=== PATIENT | male | born 1965 | race Caucasian/White ===

== ENCOUNTER 2022-01-01 18:09 | Observation (INO) ==
[2022-01-01 18:32] LABS: Basophils # (auto) 0.03 K/uL (0-0.2); Basophils % (auto) 0.4 %; Eosinophils # (auto) 0.05 K/uL (0-0.5); Eosinophils % (auto) 0.7 %; Hematocrit (blood only) 49.3 % (42-52); Hemoglobin 17.2 g/dL (14.0-18.0); Immature Granulocytes # (auto) 0.01 K/uL (0.00-0.02); Immature Granulocytes % (auto) 0.1 %; Lymphocytes # (auto) 2.31 K/uL (1.2-3.4); Lymphocytes % (auto) 30.4 %; Mean Corpuscular Hemoglobin 33.2 pg (25-34); Mean Corpuscular Hgb Conc 34.9 g/dL (32-36); Mean Corpuscular Volume 95.2 fL (80-100); Mean Platelet Volume 10.5 fL (7.4-10.4); Monocytes # (auto) 0.27 K/uL (0.11-0.59); Monocytes % (auto) 3.5 %; Neutrophils # (auto) 4.94 K/uL (1.4-6.5); Neutrophils % (auto) 64.9 %; Platelet Count 267 K/uL (130-400); RDW Coefficient of Variation 13.3 % (11.5-14.5); RDW Standard Deviation 46.2 fL (36.4-46.3); Red Blood Count 5.18 M/uL (4.7-6.1); White Blood Count 7.61 K/uL (4.8-10.8)
[2022-01-01 18:59] LABS: Troponin I < 0.03 ng/ml (0-0.04)
[2022-01-01 19:04] LABS: Anion Gap 10 (3-11); Blood Urea Nitrogen 22 mg/dl (6-23); Calcium 9.3 mg/dl (8.5-10.1); Carbon Dioxide 24 mmol/L (21-32); Chloride 103 mmol/L (98-107); Creatinine Clr Calc Pharmacy 97.8 ml/min; Est GFR (African American) 86.5 ml/min; Est GFR (Non-African American) 74.6 ml/min; Glucose 128 mg/dl (70-99(Fasting)); Lipase 9 U/L (11-82); Potassium 4.2 mmol/L (3.5-5.1); Sodium 137 mmol/L (136-145)
--- NOTE | 2022-01-01 19:23 | XRay Report ---
XR chest 1V portable HISTORY: Atypical Chest Pain COMPARISON: Chest 12/26/2011. FINDINGS: No pneumothorax. No pleural effusions. No focal lung consolidations to suggest pneumonia. N o evidence for pulmonary edema. The heart remains mildly enlarged. IMPRESSION: Stable mild cardiomegaly. Otherwise, no acute process within the chest. ACT 112: Negative or not required by law. Electronically signed by: Colin Retana M.D. 01/01/2022 7:22 PM
--- NOTE | 2022-01-01 20:12 | History & Physical Report ---
Date of Service January 01, 2022 Assessment & Plan (1) Chest pain: (2) HTN (hypertension): (3) Tobacco use disorder: (4) Alcohol use disorder: Plan: This is a 56yo M with a PMH of HTN, tobacco use disorder and alcohol use who presents from [facility] after developing chest pain following a resting echocardiogram today. PCP: Seven Patient seen and examined with Dr. Nino. Please see addendum for plan details. History of Present Illness Chief Complaint: chest pain Primary Care Provider: Wandy Amezcua, DO This is a 56yo M with a PMH of HTN and tobacco use disorder who presents from [facility] after developing chest pain following a resting echocardiogram today. Patient recently established with [facility] PCP last month after not receiving medical care for years. There was concern for elevated blood pressure, so patient was started on 25 mg losartan and then recently directed to increase to 50 mg but patient has not yet started that dose. Went to [facility] today for resting echocardiogram due to elevated blood pressure and was driving home when he developed sudden onset, substernal, central chest pressure, rating pain a 10/10. Pain was nonradiating. Was associated with diaphoresis, nausea and shortness of breath. No vomiting. Drove himself to back [facility], where he was brought by EMS to the hospital for further evaluation. Received aspirin and sublingual nitro with complete resolution of chest pain. Would estimate his chest pain lasted for approximately 15-20 minutes. Denies any episodes of chest pain in the past. No significant family history of heart disease. Continues to smoke 1/2 pack/day of cigarettes. Endorses drinking 4-8 beers nightly with last drink last evening. TTE report from earlier today with preserved EF: 55-59%, grade 1 diastolic dysfunction. Currently resting comfortably. No fever, chills, headache, lightheadedness, CP, palpitations, SOB, N/V, abdominal pain, dysuria, diarrhea or constipation. Allergies Allergy/AdvReac Type Severity Reaction Status Date / Time No Known Allergies Allergy Unverified 01/01/22 19:17 Home Medications Medication Instructions Recorded Confirmed Type albuterol sulfate 90 mcg/actuation 2 puff INHALATION Q4H PRN 01/01/22 01/01/22 History aerosol inhaler losartan 25 mg tablet 25 mg PO QAM 01/01/22 01/01/22 History Past Med/Surg History Medical History Alcohol use disorder HTN (hypertension) Tobacco use disorder Surgical History S/P hernia repair Family History Other Cancer Diabetes Social History Smoking Status: Current every day smoker Tobacco Type: Cigarettes packs per day: 0.5; Years Smoked: 20; Hx Alcohol Use: Yes Alcohol type: beer Alcohol type Comment: 4-8 beers nightly, last drink 12/31/21 Hx Substance Use: No Preferred Language: [place] Communication Ability: Effective Negotiator Required: No Beliefs That Will Affect Care: None Current Living Situation: Alone Feels Safe at Home: Yes Safety Concerns: Feels Safe At This Time Assistive Devices: Glasses Assistive Devices Comment: reading glasses Review of Systems Review of Systems: At least ten systems reviewed and negative except as noted in the HPI. Physical Exam Physical Exam: General Appearance: WD/WN, vitals as above, NAD, sitting up in bed, pleasant, conversing easily Head: normocephalic, atraumatic Eyes: normal inspection, PERRL, conjunctivae normal, anicteric sclerae ENT: external ear and nose normal, oropharynx normal Neck: normal visual inspection, trachea midline, no thyromegaly Respiratory: normal respiratory effort, lungs clear to auscultation, no wheeze, rales, rhonchi. No accessory muscle use Cardiovascular: regular rate, rhythm, no murmur, normal peripheral pulses, no BLE edema. Vessels: no JVD Chest: normal inspection of chest, no reproducible pain to palpation Abdomen/GI: normal bowel sounds, soft, nontender, no hepatosplenomegaly Extremities/Musculoskeletal: no cyanosis or clubbing, extremities motor strength 5/5 Neurologic: PERRL, EOMI, accommodation nl, no face palsy, no dysarthria, CN's II-XI intact bilaterally and moves all extremities Psychiatric: A+Ox3, euthymic affect Skin: no rashes, normal color, warm/dry Results & Data Results & Data ([facility]) Vital Signs (Past 12 Hours) Vital Signs Temp Pulse Pulse Resp BP BP Pulse Ox 01/01/22 19:45 81 18 129/76 96 01/01/22 19:40 85 17 97 01/01/22 19:30 142/85 H 80 L 01/01/22 19:20 82 L 01/01/22 19:15 83 127/76 01/01/22 19:10 89 01/01/22 19:00 86 132/73 01/01/22 18:50 87 01/01/22 18:45 83 138/73 01/01/22 18:40 82 01/01/22 18:32 36.7 C 87 87 18 135/81 97 01/01/22 18:13 36.7 C 87 14 161/98 H Laboratory Results Short CBC 01/01/22 Range/Units 18:15 WBC 7.61 (4.8-10.8) K/uL Hgb 17.2 (14.0-18.0) g/dL Hct 49.3 (42-52) % Plt Count 267 (130-400) K/uL BMP 01/01/22 18:15 Sodium 137 Potassium 4.2 Chloride 103 Carbon Dioxide 24 BUN 22 Creatinine 1.10 Glucose 128 H Calcium 9.3 Cardiac Enzymes 01/01/22 Range/Units 18:15 Troponin I < 0.03 (0-0.04) ng/ml Diagnostic Findings Chest X-Ray 01/01/22 18:22 XR chest 1V portable HISTORY: Atypical Chest Pain COMPARISON: Chest 12/26/2011. FINDINGS: No pneumothorax. No pleural effusions. No focal lung consolidations to suggest pneumonia. No evidence for pulmonary edema. The heart remains mildly enlarged. IMPRESSION: Stable mild cardiomegaly. Otherwise, no acute process within the chest. ACT 112: Negative or not required by law. Electronically signed by: Colin Retana M.D. 01/01/2022 7:22 PM ECG Additional Comments: Normal sinus rhythm, Incomplete right bundle branch block Supervising Physician Co-Signing Physician Notes IM ATTENDING : Patient seen and examined. History obtained from patient and records. Preceding documentation by Ms. Patricia Miles PA-C reviewed. In addition, patient irate about multiple providers "asking the same questions" about his medical history. Patient became defensive when queried regarding alcohol intake. FINAL ASSESSMENT AND PLAN as follows : Chest pain rule out ACS Patient with risk factors for ischemic heart disease Hypertension, slightly elevated Hyperglycemia rule out DM Possible alcohol abuse Ongoing tobacco abuse OBS PCU Aspirin for CAD prevention until ACS definitely ruled out Trend cardiac markers Cardiology consult in a.m. RE chest pain N.p.o. after midnight until patient seen by cardiology in anticipation of diagnostic procedure. Titrate home losartan PATRICE S, DT precautions Check lipid profile, hemoglobin A1c DVT prophylaxis. Lovenox subcu Full code Text document was generated using [employer] voice recognition software. It may contain grammatical or spelling errors. Kindly contact undersigned for clarification of any documentation item in question.
[2022-01-01 20:50] LABS: Partial Thromboplastin Ratio 0.9; Partial Thromboplastin Time 23.2 Seconds (21.0-31.0)
[2022-01-01] MEDS ORDERED: LOSARTAN POTASSIUM 25 MG TAB PO STA (20:52)
[2022-01-01] MEDS ORDERED: THIAMINE HCL 100 MG in SYRINGE 9 ML IV STA (20:54)
[2022-01-01 21:21] LABS: Troponin I < 0.03 ng/ml (0-0.04)
[2022-01-01] MEDS ORDERED: THIAMINE HCL 100 MG/ML 2 ML VIAL ONE (21:24)
[2022-01-01 21:33] LABS: Alanine Aminotransferase 24 U/L (7-52); Alkaline Phosphatase 50 U/L (34-104); Bilirubin,Total 0.9 mg/dl (0.2-1.0); Magnesium 1.9 mg/dl (1.7-2.4); Total Protein 6.5 gm/dl (6.0-8.3)
[2022-01-02] MEDS ORDERED: SODIUM CHLORIDE 0.9% 1000ML 1,000 ML IV SCH
[2022-01-02 00:21] LABS: Bilirubin Direct 0.1 mg/dl (0-0.2)
--- NOTE | 2022-01-02 00:30 | Emergency Department Note ---
History of Present Illness General Chief Complaint: Chest Pain Time Seen by Provider: 01/01/22 18:18 History of Present Illness Provider Complaint: chest pain Onset (ago): hour(s) 2 Duration: now resolved Onset: during rest Pain Location: substernal Pain Radiation: none Severity: moderate Maximum Pain Intensity: 5 Current Pain Intensity: 5 Quality: + heaviness Relieved By: + nitroglycerin Exacerbated By: + nothing Context: no recent illness, no recent surgery, no recent immobilization, no recent travel, no trauma/injury, no new medications or no history of DVT/PE Associated symptoms: + dyspnea; no nausea, no vomiting, no diaphoresis, no sense of impending doom, no syncope, no palpitations, no fever, no cough or no leg swelling Treatments prior to arrival: aspirin and nitroglycerin Pain began while getting a cardiac echo at [facility]. Home Medications Medication Instructions Recorded Confirmed Type albuterol sulfate 90 mcg/actuation 2 puff INHALATION Q4H PRN 01/01/22 01/01/22 History aerosol inhaler losartan 25 mg tablet 25 mg PO QAM 01/01/22 01/01/22 History Allergies Allergy/AdvReac Type Severity Reaction Status Date / Time No Known Allergies Allergy Unverified 01/01/22 19:17 Past Med/Surg History Medical History Alcohol use disorder HTN (hypertension) Tobacco use disorder Surgical History S/P hernia repair Family History Other Cancer Diabetes Social History Smoking Status: Current every day smoker Tobacco Type: Cigarettes packs per day: 0.5; Years Smoked: 20; Hx Alcohol Use: Yes Alcohol type: beer Alcohol type Comment: 4-8 beers nightly, last drink 12/31/21 Hx Substance Use: No Feels Safe at Home: Yes Review of Systems A total of 10 systems reviewed and were otherwise negative Physical Exam Vital Signs Vital Signs - 24 hr 01/01/22 18:13 01/01/22 18:32 01/01/22 18:40 Temperature 36.7 C 36.7 C Temperature Source Oral Oral Pulse Rate 87 87 82 Pulse Rate [Left Finger] 87 Pulse Rate from SpO2 Sensor Pulse Rhythm Regular Pulse Rhythm [Left Finger] Regular Pulse Strength [Left Finger] Normal Respiratory Rate 14 18 Respiratory Effort / Characteristics Respiratory Depth Normal Normal Respiratory Pattern Blood Pressure 161/98 H Blood Pressure [Left Arm] 135/81 Blood Pressure Mean 119 Blood Pressure Mean [Left Arm] 99 Blood Pressure Position Lying Pulse Oximetry 97 Oxygen Delivery Method Room Air Room Air Sepsis New/Unexplained Change in Mental Status No Sepsis Action Taken by Nursing No Action Required 01/01/22 18:45 01/01/22 18:50 01/01/22 19:00 Temperature Temperature Source Pulse Rate 83 87 86 Pulse Rate [Left Finger] Pulse Rate from SpO2 Sensor Pulse Rhythm Pulse Rhythm [Left Finger] Pulse Strength [Left Finger] Respiratory Rate Respiratory Effort / Characteristics Respiratory Depth Respiratory Pattern Blood Pressure 138/73 132/73 Blood Pressure [Left Arm] Blood Pressure Mean 94 92 Blood Pressure Mean [Left Arm] Blood Pressure Position Pulse Oximetry Oxygen Delivery Method Sepsis New/Unexplained Change in Mental Status Sepsis Action Taken by Nursing 01/01/22 19:10 01/01/22 19:15 01/01/22 19:20 Temperature Temperature Source Pulse Rate 89 83 Pulse Rate [Left Finger] Pulse Rate from SpO2 Sensor Pulse Rhythm Pulse Rhythm [Left Finger] Pulse Strength [Left Finger] Respiratory Rate Respiratory Effort / Characteristics Respiratory Depth Respiratory Pattern Blood Pressure 127/76 Blood Pressure [Left Arm] Blood Pressure Mean 93 Blood Pressure Mean [Left Arm] Blood Pressure Position Pulse Oximetry 82 L Oxygen Delivery Method Sepsis New/Unexplained Change in Mental Status Sepsis Action Taken by Nursing 01/01/22 19:30 01/01/22 19:40 01/01/22 19:45 Temperature Temperature Source Pulse Rate 85 81 Pulse Rate [Left Finger] Pulse Rate from SpO2 Sensor 86 82 Pulse Rhythm Pulse Rhythm [Left Finger] Pulse Strength [Left Finger] Respiratory Rate 17 18 Respiratory Effort / Characteristics Respiratory Depth Respiratory Pattern Blood Pressure 142/85 H 129/76 Blood Pressure [Left Arm] Blood Pressure Mean 104 93 Blood Pressure Mean [Left Arm] Blood Pressure Position Pulse Oximetry 80 L 97 96 Oxygen Delivery Method Sepsis New/Unexplained Change in Mental Status Sepsis Action Taken by Nursing 01/01/22 20:00 01/01/22 20:01 01/01/22 20:15 Temperature Temperature Source Pulse Rate 85 81 Pulse Rate [Left Finger] 82 Pulse Rate from SpO2 Sensor 86 81 Pulse Rhythm Pulse Rhythm [Left Finger] Regular Pulse Strength [Left Finger] Normal Respiratory Rate 18 12 20 Respiratory Effort / Characteristics Respiratory Depth Normal Respiratory Pattern Blood Pressure 141/91 H 139/82 Blood Pressure [Left Arm] 154/101 H Blood Pressure Mean 107 101 Blood Pressure Mean [Left Arm] 118 Blood Pressure Position Pulse Oximetry 98 97 96 Oxygen Delivery Method Room Air Sepsis New/Unexplained Change in Mental Status Sepsis Action Taken by Nursing 01/01/22 20:30 01/01/22 22:00 01/01/22 23:00 Temperature 36.8 C Temperature Source Oral Pulse Rate 85 77 Pulse Rate [Left Finger] 80 Pulse Rate from SpO2 Sensor 85 77 Pulse Rhythm Pulse Rhythm [Left Finger] Regular Pulse Strength [Left Finger] Normal Respiratory Rate 20 18 18 Respiratory Effort / Characteristics Non-Labored Respiratory Depth Normal Respiratory Pattern Regular Blood Pressure 154/101 H 156/91 H Blood Pressure [Left Arm] 140/82 Blood Pressure Mean 118 112 Blood Pressure Mean [Left Arm] 101 Blood Pressure Position Pulse Oximetry 96 97 96 Oxygen Delivery Method Room Air Room Air Sepsis New/Unexplained Change in Mental Status Sepsis Action Taken by Nursing 01/01/22 23:15 01/02/22 00:00 Temperature Temperature Source Pulse Rate 78 72 Pulse Rate [Left Finger] Pulse Rate from SpO2 Sensor 79 72 Pulse Rhythm Pulse Rhythm [Left Finger] Pulse Strength [Left Finger] Respiratory Rate 19 18 Respiratory Effort / Characteristics Respiratory Depth Respiratory Pattern Blood Pressure 134/84 106/60 Blood Pressure [Left Arm] Blood Pressure Mean 100 75 Blood Pressure Mean [Left Arm] Blood Pressure Position Pulse Oximetry 95 93 Oxygen Delivery Method Room Air Room Air Sepsis New/Unexplained Change in Mental Status Sepsis Action Taken by Nursing Physical Exam GENERAL: He is oriented to person, place, and time. He appears well-developed and well-nourished. He does not appear distressed. HENT: Exam performed. - Head: Normocephalic and atraumatic. - Right Ear: External ear normal. No mastoid tenderness. - Left Ear: External ear normal. No mastoid tenderness. - Mouth/Throat: The oropharynx is clear and moist. No trismus in the jaw. No dental abscesses or uvula swelling. No oropharyngeal exudate or tonsillar abscesses. EYES: Conjunctivae and EOM are normal. Pupils are equal, round, and reactive to light. Right eye exhibits no discharge. Left eye exhibits no discharge. No scleral icterus. NECK: Normal range of motion. Neck supple. No JVD present. No spinous process tenderness present. No carotid bruit present. No rigidity. No tracheal deviation and normal range of motion present. No Brudzinski's sign and no Kernig's sign noted. CV: Normal rate, regular rhythm, normal heart sounds and intact distal pulses. There is no peripheral edema. Palpable radial pulses bue. PULM/CHEST: Effort normal and breath sounds normal. No respiratory distress. No stridor. He has no wheezes. He has no rales. - Chest Wall: He exhibits no tenderness. ABD: The abdomen is soft. Bowel sounds are normal. He has no distension. No mass is present. There is no tenderness. There is no rebound, no guarding, no Hook's sign and no tenderness at McBurney's point. Rovsig negative. MUSC/SKEL: Normal range of motion. There is no peripheral edema, tenderness or deformity. LYMPH: No cervical adenopathy. NEURO: He is alert and oriented to person, place, and time. He has normal strength. No cranial nerve deficit or sensory deficit. Coordination and gait normal. GCS eye subscore is 4. GCS verbal subscore is 5. GCS motor subscore is 6. Cerebellar tests wnl. SKIN: Skin is warm and dry. He is not diaphoretic. PSYCH: He has a normal mood and affect. Behavior is normal. Judgment and thought content normal. Course Course 1817: The patient was evaluated in room C6. A complete history and physical exam was performed Cardiac monitoring: An order was placed for continuous cardiac monitoring. The monitor shows a rate of 70 with sinus rhythm 1954: Vital signs stable. Labs and imaging within normal limits. Patient currently not reporting any chest pain. [facility] and cardiology kennedy luation. Dr. Alex team notified. Administered Medications Sodium Chloride (Nss 1000ml) 1,000 mls @ 50 mls/hr IV .Q20H ALAN Stop: 02/01/22 00:00 Last Admin: 01/02/22 00:05 Dose: 50 mls/hr Documented by: [id number] Discontinued Medications Thiamine HCl 100 mg/ Syringe 10 mls @ 2 mls/min IV NOW STA Stop: 01/01/22 20:58 Last Admin: 01/01/22 21:27 Dose: 2 mls/min Documented by: [id number] Losartan Potassium (Losartan Potassium 25 Mg Tab) 25 mg PO NOW STA Stop: 01/01/22 20:53 Last Admin: 01/01/22 21:34 Dose: 25 mg Documented by: [id number] Thiamine HCl (Thiamine Hcl 100 Mg/Ml 2 Ml Vial) Confirm Administered Dose 200 mg .ROUTE .STK-MED ONE Stop: 01/01/22 21:25 Last Admin: 01/01/22 21:26 Dose: Not Given Documented by: [id number] Medical Decision Making Laboratory Data Result diagrams: 01/01/22 18:15 01/01/22 18:15 Labs: Lab Results 01/01/22 01/01/22 01/01/22 Range/Units 18:15 18:15 18:15 WBC 7.61 (4.8-10.8) K/uL RBC 5.18 (4.7-6.1) M/uL Hgb 17.2 (14.0-18.0) g/dL Hct 49.3 (42-52) % MCV 95.2 (80-100) fL MCH 33.2 (25-34) pg MCHC 34.9 (32-36) g/dL RDW Std Deviation 46.2 (36.4-46.3) fL RDW Coeff of Johnson 13.3 (11.5-14.5) % Plt Count 267 (130-400) K/uL MPV 10.5 H (7.4-10.4) fL Immature Gran % (Auto) 0.1 % Neut % (Auto) 64.9 % Lymph % (Auto) 30.4 % Runnels % (Auto) 3.5 % Eos % (Auto) 0.7 % Baso % (Auto) 0.4 % Neut # (Auto) 4.94 (1.4-6.5) K/uL Lymph # (Auto) 2.31 (1.2-3.4) K/uL Runnels # (Auto) 0.27 (0.11-0.59) K/uL Eos # (Auto) 0.05 (0-0.5) K/uL Baso # (Auto) 0.03 (0-0.2) K/uL Immature Gran # (Auto) 0.01 (0.00-0.02) K/uL APTT 23.2 (21.0-31.0) Seconds PTT Ratio 0.9 Sodium 137 (136-145) mmol/L Potassium 4.2 (3.5-5.1) mmol/L Chloride 103 (98-107) mmol/L Carbon Dioxide 24 (21-32) mmol/L Anion Gap 10 (3-11) BUN 22 (6-23) mg/dl Creatinine 1.10 (0.6-1.4) mg/dl Est Cr Clr Drug Dosing 97.8 ml/min Est GFR ( Amer) 86.5 ml/min Est GFR (Non-Af Amer) 74.6 ml/min BUN/Creatinine Ratio 20.0 (10-20) Glucose 128 H (70-99(Fasting)) mg/dl Calcium 9.3 (8.5-10.1) mg/dl Magnesium (1.7-2.4) mg/dl Total Bilirubin (0.2-1.0) mg/dl Direct Bilirubin (0-0.2) mg/dl AST (13-39) U/L ALT (7-52) U/L Alkaline Phosphatase (34-104) U/L Troponin I < 0.03 (0-0.04) ng/ml Total Protein (6.0-8.3) gm/dl Albumin (3.4-5.0) gm/dl Lipase 9 L (11-82) U/L SARS-CoV-2, RNA, NAAT (NEGATIVE) 01/01/22 01/01/22 01/01/22 Range/Units 18:27 20:45 22:30 WBC (4.8-10.8) K/uL RBC (4.7-6.1) M/uL Hgb (14.0-18.0) g/dL Hct (42-52) % MCV (80-100) fL MCH (25-34) pg MCHC (32-36) g/dL RDW Std Deviation (36.4-46.3) fL RDW Coeff of Johnson (11.5-14.5) % Plt Count (130-400) K/uL MPV (7.4-10.4) fL Immature Gran % (Auto) % Neut % (Auto) % Lymph % (Auto) % Runnels % (Auto) % Eos % (Auto) % Baso % (Auto) % Neut # (Auto) (1.4-6.5) K/uL Lymph # (Auto) (1.2-3.4) K/uL Runnels # (Auto) (0.11-0.59) K/uL Eos # (Auto) (0-0.5) K/uL Baso # (Auto) (0-0.2) K/uL Immature Gran # (Auto) (0.00-0.02) K/uL APTT (21.0-31.0) Seconds PTT Ratio Sodium (136-145) mmol/L Potassium (3.5-5.1) mmol/L Chloride (98-107) mmol/L Carbon Dioxide (21-32) mmol/L Anion Gap (3-11) BUN (6-23) mg/dl Creatinine (0.6-1.4) mg/dl Est Cr Clr Drug Dosing ml/min Est GFR ( Amer) ml/min Est GFR (Non-Af Amer) ml/min BUN/Creatinine Ratio (10-20) Glucose (70-99(Fasting)) mg/dl Calcium (8.5-10.1) mg/dl Magnesium 1.9 (1.7-2.4) mg/dl Total Bilirubin 0.9 (0.2-1.0) mg/dl Direct Bilirubin Cancelled (0-0.2) mg/dl AST Cancelled (13-39) U/L ALT 24 (7-52) U/L Alkaline Phosphatase 50 (34-104) U/L Troponin I < 0.03 (0-0.04) ng/ml Total Protein 6.5 (6.0-8.3) gm/dl Albumin 4.0 (3.4-5.0) gm/dl Lipase (11-82) U/L SARS-CoV-2, RNA, NAAT NEGATIVE (NEGATIVE) 01/01/22 Range/Units 23:26 WBC (4.8-10.8) K/uL RBC (4.7-6.1) M/uL Hgb (14.0-18.0) g/dL Hct (42-52) % MCV (80-100) fL MCH (25-34) pg MCHC (32-36) g/dL RDW Std Deviation (36.4-46.3) fL RDW Coeff of Johnson (11.5-14.5) % Plt Count (130-400) K/uL MPV (7.4-10.4) fL Immature Gran % (Auto) % Neut % (Auto) % Lymph % (Auto) % Runnels % (Auto) % Eos % (Auto) % Baso % (Auto) % Neut # (Auto) (1.4-6.5) K/uL Lymph # (Auto) (1.2-3.4) K/uL Runnels # (Auto) (0.11-0.59) K/uL Eos # (Auto) (0-0.5) K/uL Baso # (Auto) (0-0.2) K/uL Immature Gran # (Auto) (0.00-0.02) K/uL APTT (21.0-31.0) Seconds PTT Ratio Sodium (136-145) mmol/L Potassium (3.5-5.1) mmol/L Chloride (98-107) mmol/L Carbon Dioxide (21-32) mmol/L Anion Gap (3-11) BUN (6-23) mg/dl Creatinine (0.6-1.4) mg/dl Est Cr Clr Drug Dosing ml/min Est GFR ( Amer) ml/min Est GFR (Non-Af Amer) ml/min BUN/Creatinine Ratio (10-20) Glucose (70-99(Fasting)) mg/dl Calcium (8.5-10.1) mg/dl Magnesium (1.7-2.4) mg/dl Total Bilirubin (0.2-1.0) mg/dl Direct Bilirubin 0.1 (0-0.2) mg/dl AST 15 (13-39) U/L ALT (7-52) U/L Alkaline Phosphatase (34-104) U/L Troponin I (0-0.04) ng/ml Total Protein (6.0-8.3) gm/dl Albumin (3.4-5.0) gm/dl Lipase (11-82) U/L SARS-CoV-2, RNA, NAAT (NEGATIVE) Imaging Data Chest x-ray: Radiologist's impression: Chest X-Ray 01/01/22 18:22 XR chest 1V portable HISTORY: Atypical Chest Pain COMPARISON: Chest 12/26/2011. FINDINGS: No pneumothorax. No pleural effusions. No focal lung consolidations to suggest pneumonia. No evidence for pulmonary edema. The heart remains mildly enlarged. IMPRESSION: Stable mild cardiomegaly. Otherwise, no acute process within the chest. ACT 112: Negative or not required by law. Electronically signed by: Colin Retana M.D. 01/01/2022 7:22 PM ECG Data Indication: chest pain Rate (beats per minute): 87 Rhythm: normal sinus Findings: no ST depression, no ST elevation or no prolonged QT MDM Narrative Vital signs stable. Labs and imaging within normal limits. Patient currently not reporting any chest pain. Patient [facility] be [facility] to the [facility] hospitalist team for chest pain rule out ACS and cardiology evaluation. Dr. Alex team notified. Impression & Plan Chest pain Discharge Plan Visit Data Chief Complaint: Chest Pain ED Provider: Kush Gan Discharge Problem: Chest pain Patient Disposition: Being Evaluated by Hospitalist Forms Stand Alone Forms: Onit Prescriptions Prescriptions: No Action losartan 25 mg tablet 25 mg PO QAM RF: 0 albuterol sulfate 90 mcg/actuation HFA aerosol inhaler 2 puff INHALATION Q4H PRN (Reason: Shortness Of Breath) RF: 0 Referrals Referrals: Wandy Amezcua DO [Primary Care Provider] -
[2022-01-02] MEDS ORDERED: ATIVAN IV ALCOHOL WITHDRAWL IV PRN (02:18)
[2022-01-02] MEDS ORDERED: oxyCODONE HCL IR 5 MG TAB (IMMEDIATE RELEASE) PO PRN (02:18)
[2022-01-02] MEDS ORDERED: PROMETHAZINE HCL 12.5 MG in SODIUM CHLORIDE 0.9% 50 ML IV PRN (02:18)
[2022-01-02] MEDS ORDERED: LORazepam 1 MG/2 ML VIAL IV PRN (02:18)
[2022-01-02] MEDS ORDERED: ACETAMINOPHEN 325 MG TAB PO PRN (02:18)
[2022-01-02] MEDS ORDERED: LORazepam 3 MG/6 ML VIAL IV PRN (02:18)
[2022-01-02] MEDS ORDERED: LORazepam 2 MG/4 ML VIAL IV PRN (02:18)
[2022-01-02] MEDS ORDERED: NITROGLYCERIN SL 0.4 MG/TAB TAB SL PRN (02:18)
[2022-01-02 06:40] LABS: Basophils # (auto) 0.02 K/uL (0-0.2); Basophils % (auto) 0.3 %; Eosinophils # (auto) 0.08 K/uL (0-0.5); Hematocrit (blood only) 44.8 % (42-52); Immature Granulocytes # (auto) 0.01 K/uL (0.00-0.02); Immature Granulocytes % (auto) 0.1 %; Lymphocytes # (auto) 1.78 K/uL (1.2-3.4); Mean Corpuscular Hemoglobin 32.2 pg (25-34); Mean Corpuscular Hgb Conc 33.5 g/dL (32-36); Mean Corpuscular Volume 96.1 fL (80-100); Mean Platelet Volume 10.1 fL (7.4-10.4); Monocytes # (auto) 0.49 K/uL (0.11-0.59); Monocytes % (auto) 6.3 %; Neutrophils # (auto) 5.35 K/uL (1.4-6.5); Neutrophils % (auto) 69.3 %; Platelet Count 252 K/uL (130-400); RDW Coefficient of Variation 13.7 % (11.5-14.5); RDW Standard Deviation 48.2 fL (36.4-46.3); Red Blood Count 4.66 M/uL (4.7-6.1); White Blood Count 7.73 K/uL (4.8-10.8)
[2022-01-02 07:11] LABS: Partial Thromboplastin Time 25.9 Seconds (21.0-31.0)
[2022-01-02 07:13] LABS: Anion Gap 4 (3-11); BUN Creatinine Ratio 16.8 (10-20); Blood Urea Nitrogen 18 mg/dl (6-23); Calcium 8.7 mg/dl (8.5-10.1); Carbon Dioxide 26 mmol/L (21-32); Chloride 108 mmol/L (98-107); Chol HDL Ratio 4.1 (0-5); Cholesterol 179 mg/dl (0-200); Creatinine Clr Calc Pharmacy 95.8 ml/min; Est GFR (African American) 89.5 ml/min; Est GFR (Non-African American) 77.2 ml/min; Glucose 107 mg/dl (70-99(Fasting)); HDL Cholesterol 44 mg/dl; LDL Cholesterol Calculated 117 mg/dl; Potassium 4.6 mmol/L (3.5-5.1); Sodium 138 mmol/L (136-145); Triglycerides 92 mg/dl (0-150); Troponin I < 0.03 ng/ml (0-0.04); VLDL Cholesterol 18 mg/dl (0-30)
[2022-01-02 07:23] LABS: Estimated Average Glucose 123 mg/dl; Hemoglobin A1C 5.9 % (4.5-5.6)
[2022-01-02] MEDS ORDERED: ASPIRIN 81 MG ECTAB PO SCH (09:00)
[2022-01-02] MEDS ORDERED: MULTIVITAMIN TAB PO SCH (09:00)
[2022-01-02] MEDS ORDERED: LOSARTAN POTASSIUM 50 MG TAB PO SCH (09:00)
[2022-01-02] MEDS ORDERED: FOLIC ACID 1 MG TAB PO SCH (09:00)
[2022-01-02] MEDS ORDERED: ENOXAPARIN INJ 40 MG/0.4 ML SYR SQ SCH (09:00)
--- NOTE | 2022-01-02 09:08 | Electrocardiogram Report ---
Test Reason : Blood Pressure : / mmHG Vent. Rate : 073 BPM Atrial Rate : 073 BPM P-R Int : 116 ms QRS Dur : 092 ms QT Int : 394 ms P-R-T Axes : 019 065 056 degrees QTc Int : 434 ms Normal sinus rhythm Normal ECG No previous ECGs available Confirmed by Garrick Price ([id number]) on 01/02/2022 9:07:50 AM Referred By: REFERRED SELF Confirmed By:Garrick Price
--- NOTE | 2022-01-02 09:19 | Electrocardiogram Report ---
Test Reason : Blood Pressure : / mmHG Vent. Rate : 087 BPM Atrial Rate : 087 BPM P-R Int : 132 ms QRS Dur : 092 ms QT Int : 358 ms P-R-T Axes : 005 079 067 degrees QTc Int : 430 ms Normal sinus rhythm RSR' or QR pattern in V1 suggests right ventricular conduction delay Borderline ECG No previous ECGs available Confirmed by Garrick Price ([id number]) on 01/02/2022 9:19:21 AM Referred By: REFERRED SELF Confirmed By:Garrick Price
--- NOTE | 2022-01-02 09:27 | Cardiology Consultation ---
Date of Consultation January 02, 2022 Assessment & Plan (1) Chest pain at rest: (2) HTN (hypertension): (3) Tobacco use disorder: (4) Alcohol use disorder: 56-year-old male seen in consultation, evaluation of chest pain, at rest, following administration of Definity echo contrast at [facility]. Risk factors include hypertension, chronic tobacco abuse, obesity, inactivity. 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 EKGs without acute change. Troponin negative x3. Resting echocardiography with normal LV systolic function, without wall motion abnormality. Recommend stress echocardiography. Recommend aggressive blood pressure control as well as risk factor and lifestyle modification. Supervising Physician Co-Signing Physician Notes Patient seen and examined with Jorge L Hernandez PA-C. Agree with findings and assessment as above. Stress testing was nonischemic with a significantly hypertensive blood pressure response to exercise. I offered to adjust antihypertensive medications prior to discharge, however, patient states he would prefer to follow-up with his PCP for blood pressure management. Okay to DC to home from a cardiac standpoint. No cardiac follow-up necessary at this time. History of Present Illness Reason for Consultation: Chest pain Requesting Physician: Mica Attending Physician: Lobito History of Present Illness Mr. Hollis Santamaria is a 56-year-old male who recently established care with Dr. Wandy Amezcua. Due to uncontrolled hypertension, the patient was started on losartan 25 mg/day; this was recently increased to 50 mg/day however the patient did not start the increased dose. Yesterday, January 01, 2022, the patient underwent resting echocardiography with Definity contrast at [facility]. January 01, 2022 TTE Interpretation Summary ([facility], Dr. Simone Amezcua): The qualitative LV ejection fraction is 55-59% (normal). The LV wall thickness is mildly increased (concentric). The left ventricular diastolic function is mildly abnormal (grade I). The proximal ascending thoracic aorta is mildly enlarged (4.0 cm). No significant valvular disease is present. The patient notes that as soon as he left [facility] he put in a chew (smokeless tobacco) and had a swig of soda. He notes driving down the road a couple of miles when he developed diaphoresis, cloudy/blurry vision, and substernal/epigastric discomfort that felt like there was a brick on his chest. He notes driving back to [facility] where he was given a drink of water and began to feel better. After discussion, he agreed to further evaluation and was transported via EMS to [facility] for further evaluation. He was given aspirin and sublingual nitroglycerin with reported improvement. He never experienced an episode like this before, attributing it to a reaction to the contrast. EKG on presentation revealed normal sinus rhythm at 87 bpm with an incomplete right bundle branch block. EKG this morning reveals normal sinus rhythm at 73 bpm. When compared to prior EKGs specifically dated December 28, 2011, no significant change observed, no acute ST segment changes noted. Review of the patient's continuous lunchroom monitor shows no significant atrial or ventricular arrhythmias. Troponin mild less than 0.03 ng/mL x3. Chest x-ray showed stable mild cardiomegaly, without acute process in the chest. Patient has been chest pain-free throughout admission. He denies prior cardiac history, specifically denying history of CAD, [place], CHF, arrhythmia, heart murmur, rheumatic fever, or scarlet fever. Patient denies exertional chest pain. He does experience considerable exertional dyspnea that he attributes to smoking cigarettes and being out of shape. No palpitations. No resting shortness of breath. No orthopnea, PND, or edema. No lightheadedness, dizziness, near syncope, or syncope. No recent colds. No fevers, chills, or night sweats. No hemoptysis, melena, hematochezia, or hematuria. Past Medical and Surgical History: Hypertension. Chronic tobacco abuse. Ventral hernia repair. Family History: Father is alive at the age of 77. Mother in November 2021 at the age of 76. She had a history of breast cancer 25 to 30 years ago, passing with? Metastatic lung CA. 1 brother committed suicide. 1 sister and 1 brother are alive without cardiac issues. Social History: Smoker, 1 pack/day since the age of 7. Smokeless tobacco use, 1/2 to 1 can/day since the age of 7 or 8. Alcohol: 6+ beers per day. Girlfriend. 14-year-old daughter. Lives alone. 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 No abrupt weight change. No amaurosis fugax. No claudication. No history of TIA or CVA. No history of DM or thyroid problems. Complete Review of Systems is as stated above, negative, or noncontributory. Allergies Allergy/AdvReac Type Severity Reaction Status Date / Time No Known Allergies Allergy Unverified 01/01/22 19:17 Home Medications Medication Instructions Recorded Confirmed Type albuterol sulfate 90 mcg/actuation 2 puff INHALATION Q4H PRN 01/01/22 01/01/22 History aerosol inhaler losartan 25 mg tablet 25 mg PO QAM 01/01/22 01/01/22 History Patient History Medical History Alcohol use disorder HTN (hypertension) Tobacco use disorder Surgical History S/P hernia repair Family History Other Cancer Diabetes Social History Smoking Status: Current every day smoker Tobacco Type: Cigarettes packs per day: 0.5; Years Smoked: 20; Hx Alcohol Use: Yes Alcohol type: beer Alcohol type Comment: 4-8 beers nightly, last drink 12/31/21 Hx Substance Use: No Preferred Language: Cuban Communication Ability: Effective Vegetable Loader Required: No Beliefs That Will Affect Care: None Current Living Situation: Alone Feels Safe at Home: Yes Safety Concerns: Feels Safe At This Time Assistive Devices: None Assistive Devices Comment: reading glasses Physical Exam Physical Exam: General: A&Ox3. NAD. HENT: Normocephalic. Atraumatic. Eyes: PER. Conjunctiva pink, sclera clear. Neck: No carotid bruits. No JVD. No HJR. Heart: RRR, 78 bpm. No murmur. No rub. No gallop. PMI is nondisplaced. Lungs: Diminished. Decreased. No wheeze. Abdomen: +BS. Soft. Nontender. No masses or organomegaly. Extremities: No clubbing, cyanosis, or edema. Limited neurological examination is without focal deficits. Pulses: radial=2/4, posterior tibial=2/4. Results & Data ([facility]) Vital Signs (Past 12 Hours) Vital Signs Temp Pulse Pulse Resp BP BP BP 01/02/22 08:19 36.7 C 73 18 159/90 H 01/02/22 02:00 36.5 C 83 18 149/110 H 01/02/22 01:27 66 17 103/60 01/02/22 01:00 71 18 108/58 L 01/02/22 00:15 71 18 127/68 01/02/22 00:00 72 18 106/60 01/01/22 23:15 78 19 134/84 01/01/22 23:00 77 18 156/91 H 01/01/22 22:00 36.8 C 80 18 140/82 Pulse Ox 01/02/22 08:19 96 01/02/22 02:00 96 01/02/22 01:27 94 01/02/22 01:00 94 01/02/22 00:15 96 01/02/22 00:00 93 01/01/22 23:15 95 01/01/22 23:00 96 01/01/22 22:00 97 Laboratory Results Laboratory Results - last 24 hr 01/01/22 01/01/22 01/01/22 18:15 18:15 18:15 WBC 7.61 RBC 5.18 Hgb 17.2 Hct 49.3 MCV 95.2 MCH 33.2 MCHC 34.9 RDW Std Deviation 46.2 RDW Coeff of Johnson 13.3 Plt Count 267 MPV 10.5 H Immature Gran % (Auto) 0.1 Neut % (Auto) 64.9 Lymph % (Auto) 30.4 [place] % (Auto) 3.5 Eos % (Auto) 0.7 Baso % (Auto) 0.4 Neut # (Auto) 4.94 Lymph # (Auto) 2.31 [place] # (Auto) 0.27 Eos # (Auto) 0.05 Baso # (Auto) 0.03 Immature Gran # (Auto) 0.01 APTT 23.2 PTT Ratio 0.9 Sodium 137 Potassium 4.2 Chloride 103 Carbon Dioxide 24 Anion Gap 10 BUN 22 Creatinine 1.10 Est Cr Clr Drug Dosing 97.8 Est GFR ( Amer) 86.5 Est GFR (Non-Af Amer) 74.6 BUN/Creatinine Ratio 20.0 Glucose 128 H POC Glucose Estimat Average Glucose Hemoglobin A1c Calcium 9.3 Magnesium Total Bilirubin Direct Bilirubin AST ALT Alkaline Phosphatase Troponin I < 0.03 Total Protein Albumin Triglycerides Cholesterol LDL Cholesterol, Calc VLDL Cholesterol, Calc HDL Cholesterol Cholesterol/HDL Ratio Lipase 9 L SARS-CoV-2, RNA, NAAT 01/01/22 01/01/22 01/01/22 18:15 18:27 20:45 WBC RBC Hgb Hct MCV MCH MCHC RDW Std Deviation RDW Coeff of Johnson Plt Count MPV Immature Gran % (Auto) Neut % (Auto) Lymph % (Auto) [place] % (Auto) Eos % (Auto) Baso % (Auto) Neut # (Auto) Lymph # (Auto) [place] # (Auto) Eos # (Auto) Baso # (Auto) Immature Gran # (Auto) APTT PTT Ratio Sodium Potassium Chloride Carbon Dioxide Anion Gap BUN Creatinine Est Cr Clr Drug Dosing Est GFR ( Amer) Est GFR (Non-Af Amer) BUN/Creatinine Ratio Glucose POC Glucose Estimat Average Glucose 123 Hemoglobin A1c 5.9 H Calcium Magnesium 1.9 Total Bilirubin 0.9 Direct Bilirubin AST ALT 24 Alkaline Phosphatase 50 Troponin I < 0.03 Total Protein 6.5 Albumin 4.0 Triglycerides Cholesterol LDL Cholesterol, Calc VLDL Cholesterol, Calc HDL Cholesterol Cholesterol/HDL Ratio Lipase SARS-CoV-2, RNA, NAAT NEGATIVE 01/01/22 01/01/22 01/02/22 22:30 23:26 02:26 WBC RBC Hgb Hct MCV MCH MCHC RDW Std Deviation RDW Coeff of Johnson Plt Count MPV Immature Gran % (Auto) Neut % (Auto) Lymph % (Auto) [place] % (Auto) Eos % (Auto) Baso % (Auto) Neut # (Auto) Lymph # (Auto) [place] # (Auto) Eos # (Auto) Baso # (Auto) Immature Gran # (Auto) APTT PTT Ratio Sodium Potassium Chloride Carbon Dioxide Anion Gap BUN Creatinine Est Cr Clr Drug Dosing Est GFR ( Amer) Est GFR (Non-Af Amer) BUN/Creatinine Ratio Glucose POC Glucose 100 H Estimat Average Glucose Hemoglobin A1c Calcium Magnesium Total Bilirubin Direct Bilirubin Cancelled 0.1 AST Cancelled 15 ALT Alkaline Phosphatase Troponin I Total Protein Albumin Triglycerides Cholesterol LDL Cholesterol, Calc VLDL Cholesterol, Calc HDL Cholesterol Cholesterol/HDL Ratio Lipase SARS-CoV-2, RNA, NAAT 01/02/22 01/02/22 01/02/22 06:29 06:29 06:29 WBC 7.73 RBC 4.66 L Hgb 15.0 Hct 44.8 MCV 96.1 MCH 32.2 MCHC 33.5 RDW Std Deviation 48.2 H RDW Coeff of Johnson 13.7 Plt Count 252 MPV 10.1 Immature Gran % (Auto) 0.1 Neut % (Auto) 69.3 Lymph % (Auto) 23.0 [place] % (Auto) 6.3 Eos % (Auto) 1.0 Baso % (Auto) 0.3 Neut # (Auto) 5.35 Lymph # (Auto) 1.78 [place] # (Auto) 0.49 Eos # (Auto) 0.08 Baso # (Auto) 0.02 Immature Gran # (Auto) 0.01 APTT PTT Ratio Sodium 138 Potassium 4.6 Chloride 108 H Carbon Dioxide 26 Anion Gap 4 BUN 18 Creatinine 1.07 Est Cr Clr Drug Dosing 95.8 Est GFR ( Amer) 89.5 Est GFR (Non-Af Amer) 77.2 BUN/Creatinine Ratio 16.8 Glucose 107 H POC Glucose Estimat Average Glucose Hemoglobin A1c Calcium 8.7 Magnesium Total Bilirubin Direct Bilirubin AST ALT Alkaline Phosphatase Troponin I < 0.03 Cancelled Total Protein Albumin Triglycerides 92 Cholesterol 179 LDL Cholesterol, Calc 117 VLDL Cholesterol, Calc 18 HDL Cholesterol 44 Cholesterol/HDL Ratio 4.1 Lipase SARS-CoV-2, RNA, NAAT 01/02/22 06:29 WBC RBC Hgb Hct MCV MCH MCHC RDW Std Deviation RDW Coeff of Johnson Plt Count MPV Immature Gran % (Auto) Neut % (Auto) Lymph % (Auto) [place] % (Auto) Eos % (Auto) Baso % (Auto) Neut # (Auto) Lymph # (Auto) [place] # (Auto) Eos # (Auto) Baso # (Auto) Immature Gran # (Auto) APTT 25.9 PTT Ratio 1.0 Sodium Potassium Chloride Carbon Dioxide Anion Gap BUN Creatinine Est Cr Clr Drug Dosing Est GFR ( Amer) Est GFR (Non-Af Amer) BUN/Creatinine Ratio Glucose POC Glucose Estimat Average Glucose Hemoglobin A1c Calcium Magnesium Total Bilirubin Direct Bilirubin AST ALT Alkaline Phosphatase Troponin I Total Protein Albumin Triglycerides Cholesterol LDL Cholesterol, Calc VLDL Cholesterol, Calc HDL Cholesterol Cholesterol/HDL Ratio Lipase SARS-CoV-2, RNA, NAAT
--- NOTE | 2022-01-02 13:14 | Discharge Summary ---
Date of Service January 02, 2022 Admission HPI Per Admitting Provider This is a 56yo M with a PMH of HTN and tobacco use disorder who presents from [facility] after developing chest pain following a resting echocardiogram today. [facility] not receiving medical care for years. There was concern for elevated blood pressure, so patient was started on 25 mg losartan and then recently directed to increase to 50 mg but patient has not yet started that dose. Went to [facility] today for resting echocardiogram due to elevated blood pressure and was driving home when he developed sudden onset, substernal, central chest pressure, rating pain a 10/10. Pain was nonradiating. Was associated with diaphoresis, nausea and shortness of breath. No vomiting. Drove himself to back [facility], where he was brought by EMS to the hospital for further evaluation. Received aspirin and sublingual nitro with complete resolution of chest pain. Would estimate his chest pain lasted for approximately 15-20 minutes. Denies any episodes of chest pain in the past. No significant family history of heart disease. Continues to smoke 1/2 pack/day of cigarettes. Endorses drinking 4-8 beers nightly with last drink last evening. TTE report from earlier today with preserved EF: 55-59%, grade 1 diastolic dysfunction. Currently resting comfortably. No fever, chills, headache, lightheadedness, CP, palpitations, SOB, N/V, abdominal pain, dysuria, diarrhea or constipation. Admission Exam Per Admitting Provider General Appearance:WD/WN, vitals as above, NAD, sitting up in bed, pleasant, conversing easily Head: normocephalic, atraumatic Eyes:normal inspection, PERRL, conjunctivae normal, anicteric sclerae ENT: external ear and nose normal, oropharynx normal Neck: normal visual inspection, trachea midline, no thyromegaly Respiratory:normal respiratory effort, lungs clear to auscultation, no wheeze, rales, rhonchi. No accessory muscle use Cardiovascular: regular rate, rhythm, no murmur, normal peripheral pulses, no BLE edema. Vessels: no JVD Chest: normal inspection of chest, no reproducible pain to palpation Abdomen/GI: normal bowel sounds, soft, nontender, no hepatosplenomegaly Extremities/Musculoskeletal: no cyanosis or clubbing, extremities motor strength 5/5 Neurologic: PERRL, EOMI, accommodation nl, no face palsy, no dysarthria, CN's II-XI intact bilaterally and moves all extremities Psychiatric:A+Ox3, euthymic affect Skin: no rashes, normal color, warm/dry Principal Diagnosis Chest pain: HTN (hypertension): Tobacco use disorder: Alcohol use disorder: Discharge Data Allergies Allergy/AdvReac Type Severity Reaction Status Date / Time No Known Allergies Allergy Unverified 01/01/22 19:17 Consultations 01/01/22 19:50 ED Decision to Admit Stat 01/02/22 02:18 Consult Cardiology Routine Ordered Studies XR chest 1V portable HISTORY: Atypical Chest Pain COMPARISON: Chest 12/26/2011. FINDINGS: No pneumothorax. No pleural effusions. No focal lung consolidations to suggest pneumonia. No evidence for pulmonary edema. The heart remains mildly enlarged. IMPRESSION: Stable mild cardiomegaly. Otherwise, no acute process within the chest. ACT 112: Negative or not required by law. Electronically signed by: Colin Retana M.D. 01/01/2022 7:22 PM Dictated:01/01/221918 Transcribed: 01/01/221918 Hospital Course (1) Chest pain: (2) HTN (hypertension): (3) Tobacco use disorder: (4) Alcohol use disorder: This is a 56yo M with a PMH of HTN, tobacco use disorder and alcohol use who presents from [facility] after developing chest pain following a resting echocardiogram today. Chest pain rule out ACS EKG on admission showed no acute ischemic changes Troponin x3 negative Chol 179, LDL, 117, HDL, 44 and triglycerides 92 Stress Echo showed nonischemic exercise stress echocardiogram. No arrhythmia. Markedly hypertensive blood pressure response to exercise Cardio offered him to adjust his antihypertensive medications prior to discharge, but Pt refused He is very irritated and upset to be discharge now He said that he will see his PCP He said that he will decided what he needs when I asked him to follow up with his PCP and cardiology Spoke to cardiology and recommended to increase Losartan to 50mg and adding Carvedilol 3.125 mg BID Ok from cardiology standpoint to discharge home Hypertension Losartan increased to 50mg daily and carvedilol 3.125 added Continue monitor BP Hyperglycemia Most recent hba1c 5.9 Follow a health diet and exercise Tobacco abuse Counseling on smoking cessation DVT on Lovenox Code status Full code Disposition Discharge home today Total Time Total Time Spent Total Time Spent (In Minutes): 35 minutes Discharge Plan Discharge Items Patient Disposition: Home - Self-Care Reason For Visit: CHEST PAIN Discharge Diagnosis: Chest pain: HTN (hypertension): Tobacco use disorder: Alcohol use disorder: Activity: Resume your previous activity Non-emergency contact: Primary Care Provider Call non-emergency contact if: you have any medication questions Follow-up/Referrals: Wandy Amezcua DO [Primary Care Provider] - (Date & Time 01/10/2022 11:10 AM Provider Wandy Amezcua DO Department [facility] ) Diet: Heart Healthy Addtl Attending Provider Instructions: Follow up with your primary care provider Dr. Amezcua on 01/10/2022 at 11:10 AM at the [facility] Follow up with cardiology Continue monitor your blood pressure and bring your blood pressure log at your next appointment with your provider Counseling on smoking cessation Follow a low salt diet Seek medical attention if your symptoms reoccur Losartan increased to 50mg daily for your blood pressure Pending Studies at Discharge: No Stand-Alone Forms: [facility], Smoking Cessation Medications and DC Order Prescriptions: New losartan 50 mg Tablet 50 mg PO QAM 30 Days Qty: 30 RF: 0 carvedilol 3.125 mg tablet 3.125 mg PO BID 30 Days Qty: 60 RF: 0 Continued albuterol sulfate 90 mcg/actuation HFA aerosol inhaler 2 puff INHALATION Q4H PRN (Reason: Shortness Of Breath) RF: 0 Discontinued losartan 25 mg tablet 25 mg PO QAM RF: 0 Discharge Orders: Discharge Order (Routine); Ordered 01/02/22 Ordered By: Kathy Robin Admission Data Admit Date/Time: 01/01/22 21:12 Attending Provider: Kathy Robin Admit Provider: Jimy Nino Primary Care Provider: Wandy Amezcua Other Providers: Jimy Nino ; Flip Rockwell ; Jose Antonio Kerr ; Diego Ibanez ; Simone Amezcua ; Manfred Mckenzie ; Jorge L Hernandez ; Aleisha Garcia ; Yue Muhammad ; Kristal Sethi ; David Wakefield
== END 2022-01-02 13:42 | disposition home or self-care (01) ==
LOC: ED 18:09 → 1E 18:09

== ENCOUNTER 2022-12-08 21:35 | Inpatient (IN) ==
[2022-12-08] MEDS ORDERED: ONDANSETRON INJ 2 MG/ML 2 ML VIAL IV STA (21:39)
[2022-12-08] MEDS ORDERED: SODIUM CHLORIDE 0.9% 1000ML 1,000 ML IV ONE (21:39)
[2022-12-08] MEDS ORDERED: HYDROmorphone INJ 1 MG/ML SYRINGE IV STA (21:39)
--- NOTE | 2022-12-08 21:42 | Emergency Department Note ---
Impression & Plan Closed fracture dislocation of right ankle ED Provider Note Name: ANDREA STEINBERG Age: 57 Sex: M Arrives Via: Ambulance Informant: Patient, EMS ED Provider: Yoni Ingram MD Chief Complaint: Right ankle injury Impression: As per impressions above Medical Decision Makin-year-old gentleman with a history of hypertension and prostate cancer arrives for evaluation after trip and fall injuring his left ankle. On arrival ankle is severely angulated with foot pointing almost backwards. He was given some IV pain medications and foot was reduced to proper location. Clearly quite unstable by examination but following reduction pulses are intact. X-rays show widened mortise, bilateral fracture and likely this is a try mall fracture. We did place it in an Ortho-Glass splint and try to reduce further with mild patient's pain was controlled with Dilaudid as well as a dose of IV Ativan. He was given some IV fluids. I discussed the case with on-call orthopedics who agree patient will likely need operative repair and requested patient be admitted, keep leg elevated, apply ice and keep n.p.o. after midnight. I did discuss the case for admission with hospitalist given the patient's significant hypertensive issues and previous prostate cancer. All notes basic labs were obtained which are unremarkable. Patient has good sensation good cap refill and intact pulses on repeat examinations following splinting. No open wound noted on examinations. There is a very mild abrasion anterior medially which is not consistent with open fracture. Prior Medical Record and Triage/Nursing Notes reviewed by Me Additional history obtained from reviewed previous records from treatment at this facility for his prostate cancer. Differentials:Fracture, dislocation, subluxation, ligamentous injury, neurovascular injury, compartment syndrome, multiple other pathologies considered Vital Signs: reviewed and remarkable for no significant abnormalities Interventions: Dilaudid 1 mg IV, Ativan 1 mg IV, normal saline bolus Labs:Reviewed and remarkable for unremarkable CBC/BMP Imaging:As per my interpretation xray 3 view right ankle and 2 view right tib- fib does reveal distal fibular fracture, medial/posterior distal tibial fracture and widened mortise consistent with trimalleolar fracture dislocation of the rig ht ankle. As per my interpretation repeat right ankle x-ray 2 view reveals mild improvement in dislocation though continued widened mortise. Consults:Dr Flood Ortho -reviewed imaging agreed with plan for keeping splinted, apply ice, keep elevated, keep n.p.o. after midnight with possible OR in the [facility] patient Plan: Disposition:Hospitalization. Condition: Good History of Present Illness:75-year-old male arrives for evaluation of right ankle pain. Patient notes he was dancing at a [employer] [employer] party this evening when he tripped landing on his left ankle. He heard a loud pop. He is unable to ambulate. He notes deformity. No other injuries. No one hurt him. He admits to drinking alcohol tonight. Denies any drug use. Does not take any blood thinners. No previous injuries to the ankle. Any movement makes worse. Prior to arrival the ankle was immobilized with a pillow. Past Medical/Surgical History:HTN, Prostate Cancer Social History:Occasional alcohol, daily cigarette/tobacco use, no drug use Home Medications:Amlodipine, carvedilol, losartan, Flomax Allergies:NKDA Vitals:Blood Pressure: 111/75, Pulse 88, RR 20, T 37.0C, O2 96% on RA Physical Exam: GENERAL: Patient is very uncomfortable appearing and in moderate distress. RESPIRATORY: No dyspnea. Clear to auscultation and equal bilaterally. No wheeze, no rhonchi. CARDIOVASCULAR: Regular rate and rhythm.No murmurs, rubs, gallops appreciated. GASTROINTESTINAL: Abdomen soft, non-tender, no peritonitis.Bowel sounds positive.No masses appreciated. EXTREMITIES: Normal motion all extremities, no cyanosis, no edema. Angulated deformity right ankle with decreased cap refill though good SLT and movement of toes. No laceration appreciated. NEUROLOGIC: Alert and oriented, no acute motor or sensory deficits, no focal weakness, cranial nerves grossly intact. SKIN: No rash, no jaundice, no diaphoresis. PSYCH: Appropriate GCS: 15 ED Course: Procedures: Ankle reduction. Right ankle. Indication: Dislocation fracture right ankle with poor cap refill. Consent was obtained verbally given importance of rapid reduction due to vascular supply. Patient with severely angulated right ankle fracture dislocation requiring reduction. Patient was given IV pain medications and gentle traction was applied to ankle and foot was rotated back into proper position. Following this there are excellent pulses good cap refill and good movement. Splint Application: Indication: Right ankle fracture dislocation. Orthoglass splint applied by Nursing staff and myself. I evaluated splint and extremity post placement and reveals intact N/V status with splint in proper position and placement. There was no evidence of compartment syndrome. Splint care along with symptoms requiring ED return reviewed with patient and understood. Yoni Ingram MD Past Med/Surg History Medical History Chest pain Chronic rhinitis COPD (chronic obstructive pulmonary disease) Hypertension Surgical History S/P hernia repair ventral hernia 01/07/12 Dr. Dixon Family History Father Cancer Prostate Grandfather (Paternal) Cancer Prostate Uncle Cancer Prostate Other Diabetes Social History Smoking Status: Heavy tobacco smoker Tobacco Type: Cigarettes packs per day: 0.5; Cigarettes Per Day: 10; Second Hand Exposure: No; Do You Dip or Chew Tobacco: Yes; Tobacco Cessation Education Requested by Patient: No Hx Alcohol Use: Yes Alcohol type: beer, wine and hard liquor Alcohol type Comment: 4-8 beers nightly, last drink 12/31/21 Hx Substance Use: No Preferred Language: Cameroonian Communication Ability: Effective Visual Impairment: No Limitations Hearing Ability: Normal Video Editor Required: No Beliefs That Will Affect Care: None Current Living Situation: Alone current occupational status: employed 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 Other Information That Helps Us Care for You: No Feels Safe at Home: Yes Safety Concerns: Feels Safe At This Time during the past year weight has: remained stable Physical Activity Frequency: Does not Exercise Assistive Devices: None Allergies Allergies Allergy/AdvReac Type Severity Reaction Status Date / Time No Known Allergies Allergy Unverified 06/27/22 09:05 Home Meds Home Medications Medication Instructions Recorded Confirmed amlodipine 5 mg tablet 5 mg PO DAILY 06/27/22 12/08/22 carvedilol 3.125 mg tablet 3.125 mg PO BID 06/27/22 12/09/22 losartan 100 mg tablet 100 mg PO DAILY 06/27/22 12/08/22 albuterol sulfate 90 mcg/actuation 2 puff inhalation Q4 PRN Wheezing 12/08/22 12/08/22 aerosol inhaler Results & Data (ED) Vital Signs Vital Signs - 24 hr 12/08/22 21:42 12/08/22 21:48 12/08/22 22:42 Temperature 37.0 C Temperature Source Oral Pulse Rate 83 Pulse Rate [Apical] 83 88 Pulse Rhythm Regular Pulse Rhythm [Apical] Regular Regular Pulse Strength Normal Pulse Strength [Apical] Normal Normal Respiratory Rate 18 18 20 Respiratory Effort / Characteristics Non-Labored Non-Labored Non-Labored Respiratory Depth Normal Normal Normal Respiratory Pattern Regular Regular Regular Blood Pressure [Right Arm] 139/87 111/75 Blood Pressure Mean [Right Arm] 104 87 Pulse Oximetry 99 99 96 Oxygen Delivery Method Room Air Room Air Room Air Sepsis Recent Fever Within 48 Hours No Sepsis New/Unexplained Change in Mental Status No Sepsis Action Taken by Nursing No Action Required Laboratory Data 12/08/22 21:50 12/08/22 21:50 Lab Results 12/08/22 12/08/22 12/08/22 Range/Units 21:50 21:50 22:18 WBC 8.51 (4.8-10.8) K/ul RBC 5.17 (4.63-6.08) M/uL Hgb 16.8 (14.0-18.0) g/dl Hct 48.0 (40.1-51.0) % MCV 92.8 (80.0-100.0) fL MCH 32.5 (25.0-34.0) pg MCHC 35.0 (32.0-36.0) g/dL RDW Std Deviation 43.1 (36.4-46.3) fL RDW Coeff of Johnson 12.5 (11.5-14.5) % Plt Count 276 (130-400) K/uL MPV 9.4 (9.4-12.4) fL Immature Gran % (Auto) 0.4 % Neut % (Auto) 60.0 % Lymph % (Auto) 27.0 % [place] % (Auto) 9.3 % Eos % (Auto) 2.6 % Baso % (Auto) 0.7 % Neut # (Auto) 5.11 (1.4-6.5) K/uL Lymph # (Auto) 2.30 (1.2-3.4) K/uL [place] # (Auto) 0.79 (0.24-0.82) K/uL Eos # (Auto) 0.22 (0-0.50) K/uL Baso # (Auto) 0.06 (0-0.2) K/uL Immature Gran # (Auto) 0.03 H (0.00-0.02) K/uL Sodium 135 L (136-145) mmol/L Potassium 3.9 (3.5-5.1) mmol/L Chloride 99 (98-107) mmol/L Carbon Dioxide 26 (21-32) mmol/L Anion Gap 10 (3-11) BUN 17 (6-23) mg/dl Creatinine 1.22 (0.6-1.4) mg/dl Est Cr Clr Drug Dosing 83.3 ml/min Est GFR ( Amer) 75.8 ml/min Est GFR (Non-Af Amer) 65.4 ml/min BUN/Creatinine Ratio 13.9 (10-20) Glucose 104 H (70-99(Fasting)) mg/dl Calcium 9.1 (8.5-10.1) mg/dl SARS-CoV-2, RNA, NAAT NEGATIVE (NEGATIVE) Administered Medications Discontinued Medications Hydromorphone HCl (Hydromorphone Inj 1 Mg/Ml Syringe) 1 mg IV NOW STA Stop: 12/08/22 21:40 Last Admin: 12/08/22 21:59 Dose: 1 mg Documented By: KESHA Hydromorphone HCl (Hydromorphone Inj 1 Mg/Ml Syringe) 1 mg IV Q30M PRN PRN Reason: Pain Stop: 12/22/22 23:15 Last Admin: 12/09/22 00:54 Dose: 1 mg Documented By: RADHA Sodium Chloride (Nss 1000ml) 1,000 mls @ 999 mls/hr IV .Q1H1M ONE Stop: 12/08/22 22:39 Last Infusion: 12/08/22 22:55 Dose: 0 mls/hr Documented By: RSDanielle Admin: 12/08/22 21:58 Dose: 999 mls/hr Documented By: KESHA Sodium Chloride (Nss 1000ml) 1,000 mls @ 100 mls/hr IV .Q10H ALAN Stop: 01/07/23 23:29 Last Admin: 12/08/22 23:44 Dose: 100 mls/hr Documented By: ANN MARIE Lorazepam (Lorazepam 2 Mg/1 Ml Vial) 1 mg IV NOW STA Stop: 12/08/22 22:01 Last Admin: 12/08/22 22:24 Dose: 1 mg Documented By: KESHA Ondansetron HCl (Ondansetron Inj 2 Mg/Ml 2 Ml Vial) 4 mg IV NOW STA Stop: 12/08/22 21:40 Last Admin: 12/08/22 21:59 Dose: 4 mg Documented By: KESHA Discharge Plan Visit Data Chief Complaint: Ankle Pain Stated Complaint: rt ANKLE DEFORMITY ED Provider: Yoni Ingram Discharge Problem: Closed fracture dislocation of right ankle Patient Disposition: Admitted As Inpatient Discharge Instructions Interventions: ED Discharge Assessment Last Done: 12/09/22 02:28 : Closed fracture dislocation of right ankle Qualifiers: Encounter type: initial encounter Qualified Code(s): S82.891A - Other fracture of right lower leg, initial encounter for closed fracture
[2022-12-08] MEDS ORDERED: LORazepam 2 MG/1 ML VIAL IV STA (22:00)
[2022-12-08 22:12] LABS: Basophils # (auto) 0.06 K/uL (0-0.2); Basophils % (auto) 0.7 %; Eosinophils # (auto) 0.22 K/uL (0-0.50); Eosinophils % (auto) 2.6 %; Hemoglobin 16.8 g/dl (14.0-18.0); Immature Granulocytes # (auto) 0.03 K/uL (0.00-0.02); Immature Granulocytes % (auto) 0.4 %; Mean Corpuscular Hemoglobin 32.5 pg (25.0-34.0); Mean Corpuscular Volume 92.8 fL (80.0-100.0); Mean Platelet Volume 9.4 fL (9.4-12.4); Monocytes # (auto) 0.79 K/uL (0.24-0.82); Monocytes % (auto) 9.3 %; Neutrophils # (auto) 5.11 K/uL (1.4-6.5); Platelet Count 276 K/uL (130-400); RDW Coefficient of Variation 12.5 % (11.5-14.5); RDW Standard Deviation 43.1 fL (36.4-46.3); Red Blood Count 5.17 M/uL (4.63-6.08); White Blood Count 8.51 K/ul (4.8-10.8)
[2022-12-08 22:35] LABS: BUN Creatinine Ratio 13.9 (10-20); Calcium 9.1 mg/dl (8.5-10.1); Creatinine Clr Calc Pharmacy 83.3 ml/min; Est GFR (African American) 75.8 ml/min; Est GFR (Non-African American) 65.4 ml/min; Potassium 3.9 mmol/L (3.5-5.1)
[2022-12-08] MEDS ORDERED: HYDROmorphone INJ 1 MG/ML SYRINGE IV PRN (23:16)
[2022-12-08] MEDS ORDERED: SODIUM CHLORIDE 0.9% 1000ML 1,000 ML IV SCH (23:30)
[2022-12-09] MEDS ORDERED: ACETAMINOPHEN 325 MG TAB PO PRN (02:27)
[2022-12-09] MEDS ORDERED: ONDANSETRON INJ 2 MG/ML 2 ML VIAL IV PRN ×3 (02:27→10:02)
[2022-12-09] MEDS ORDERED: NITROGLYCERIN SL 0.4 MG/TAB TAB SL PRN (02:27)
[2022-12-09] MEDS ORDERED: Ativan IV Alcohol Withdrawal--Active Protocol IV PRN (02:27)
[2022-12-09] MEDS ORDERED: cloNIDine HCL 0.1 MG TAB PO PRN (02:27)
[2022-12-09] MEDS ORDERED: LORazepam 2 MG/1 ML VIAL IV PRN ×3 (02:27)
[2022-12-09] MEDS ORDERED: hydrALAZINE HCL 20 MG/ML VIAL IV PRN (02:27)
[2022-12-09] MEDS ORDERED: HYDROmorphone INJ 0.5 MG/0.5 ML SYR IV PRN ×2 (02:27→10:02)
[2022-12-09] MEDS ORDERED: GABAPENTIN 1200MG ALCOHOL WITHDRAWAL LOAD PO STA (02:27)
[2022-12-09] MEDS ORDERED: ALBUTEROL HFA 8 GM INHALER INH PRN (02:27)
[2022-12-09] MEDS ORDERED: MULTI-VITAMIN INFUSION 10 ML, THIAMINE HCL 100 MG, FOLIC ACID 1 MG in SODIUM CHLORIDE 0... IV ONE (03:00)
[2022-12-09] MEDS ORDERED: GABAPENTIN 600 MG TAB PO ONE (03:00)
[2022-12-09 04:40] LABS: Basophils # (auto) 0.04 K/uL (0-0.2); Basophils % (auto) 0.4 %; Eosinophils # (auto) 0.15 K/uL (0-0.50); Eosinophils % (auto) 1.5 %; Hematocrit (blood only) 42.8 % (40.1-51.0); Hemoglobin 14.7 g/dl (14.0-18.0); Immature Granulocytes # (auto) 0.03 K/uL (0.00-0.02); Immature Granulocytes % (auto) 0.3 %; Lymphocytes # (auto) 1.64 K/uL (1.2-3.4); Lymphocytes % (auto) 16.9 %; Mean Corpuscular Hemoglobin 32.5 pg (25.0-34.0); Mean Corpuscular Hgb Conc 34.3 g/dL (32.0-36.0); Mean Corpuscular Volume 94.5 fL (80.0-100.0); Mean Platelet Volume 9.3 fL (9.4-12.4); Monocytes # (auto) 0.96 K/uL (0.24-0.82); Monocytes % (auto) 9.9 %; Neutrophils # (auto) 6.86 K/uL (1.4-6.5); Platelet Count 247 K/uL (130-400); RDW Coefficient of Variation 12.5 % (11.5-14.5); RDW Standard Deviation 43.9 fL (36.4-46.3); Red Blood Count 4.53 M/uL (4.63-6.08); White Blood Count 9.68 K/ul (4.8-10.8)
[2022-12-09 04:59] LABS: Albumin Level 3.8 gm/dl (3.4-5.0); BUN Creatinine Ratio 14.7 (10-20); Bilirubin Direct 0.1 mg/dl (0-0.2); Bilirubin,Total 1.1 mg/dl (0.2-1.0); Calcium 8.3 mg/dl (8.5-10.1); Creatinine Clr Calc Pharmacy 99.7 ml/min; Est GFR (African American) 94.1 ml/min; Est GFR (Non-African American) 81.2 ml/min; Potassium 4.5 mmol/L (3.5-5.1); Total Protein 6.5 gm/dl (6.0-8.3)
[2022-12-09 05:26] LABS: Vitamin B12 418 pg/ml (180-914)
[2022-12-09] MEDS: SODIUM CHLORIDE 0.9% 1000ML 1,000 ML IV SCH ×4 (05:26→21:41)
[2022-12-09] MEDS ORDERED: PROPOFOL IV EMULSION 10 MG/ML 20 ML VIAL IV ONE (07:41)
[2022-12-09] MEDS ORDERED: ONDANSETRON INJ 2 MG/ML 2 ML VIAL ONE (07:41)
[2022-12-09] MEDS ORDERED: MIDAZOLAM HCL 1 MG/ML 2ML VIAL ONE (07:41)
[2022-12-09] MEDS ORDERED: fentaNYL citrate 100 MCG/2 ML VIAL ONE ×3 (07:41→10:13)
[2022-12-09] MEDS ORDERED: LIDOCAINE 2% MPF LOCAL 5 ML VIAL INFIL ONE (07:41)
--- NOTE | 2022-12-09 07:59 | Anesthesiology Consultation ---
Date of Service December 09, 2022 Assessment & Plan (1) Encounter for pre-operative examination: Chart Review Chart Review: Acceptable Risk for Surgery Consults Requested none ASA ASA3 Proposed Anesthesia Anesthesia Type: General Regional Regional Laterality: Right Site: Popliteal Risk / Benefits Reviewed With: PT / POA / Parent / Guardian, Accepts Plan and Informed Consent Obtained History Surgery Operation Date: 12/09/22 09:00 Proposed Procedures p Open Reduction Internal Fixation Right Ankle(Right) - Miky Flood MD Height/Weight Height: 5 ft 10 in Weight: 111 kg Allergies Allergy/AdvReac Type Severity Reaction Status Date / Time No Known Allergies Allergy Unverified 06/27/22 09:05 Medications Home Medications Medication Instructions Recorded Confirmed Last Taken amlodipine 5 mg tablet 5 mg PO DAILY 06/27/22 12/08/22 Unknown carvedilol 3.125 mg tablet 3.125 mg PO BID 06/27/22 12/09/22 Unknown losartan 100 mg tablet 100 mg PO DAILY 06/27/22 12/08/22 Unknown albuterol sulfate 90 mcg/actuation 2 puff inhalation Q4 PRN Wheezing 12/08/22 12/08/22 Unknown aerosol inhaler Active Medications Generic Name Dose Route Start Last Admin Trade Name Freq PRN Reason Stop Dose Admin Sodium Chloride 1,000 mls @ 125 mls/hr 12/09/22 02:27 12/09/22 05:26 Nss 1000ml IV 01/08/23 02:26 125 mls/hr .Q8H ALAN Administration NPO Date Last Intake of Fluids: 12/09/22 Time Last Intake of Fluids: 00:00 Date Last Intake of Solids: 12/09/22 Time Last Intake of Solids: 00:00 Past Medical History Medical History Chest pain Chronic rhinitis COPD (chronic obstructive pulmonary disease) Hypertension Exercise / Class Metabolic Activity II 4-5 Yardwork/Stairs/Walk up hill Past Family History Family History Father Cancer Prostate Grandfather (Paternal) Cancer Prostate Uncle Cancer Prostate Other Diabetes Past Surgical History Surgical History S/P hernia repair ventral hernia 01/07/12 Dr. Dixon Past Anesthesia History No Hx of Anesthesia Complications and No Family Hx of Anesthesia Complications History of PONV No Hx of PONV and No Hx of Motion Sickness Social History Smoking Status: Heavy tobacco smoker tobacco type: cigarettes and smokeless tobacco Smoking cigarettes per day: 10 Do You Dip or Chew Tobacco: Yes Hx Alcohol Use: Yes Alcohol type: beer, wine and hard liquor alcohol intake frequency: 3 or more drinks per day Hx Substance Use: No substance use type: does not use Physical Exam Vital Signs Last Vital Signs Temp 98.6 F 12/08/22 21:42 Pulse 89 12/09/22 07:25 Resp 18 12/09/22 07:25 BP 129/83 12/09/22 07:25 Pulse Ox 98 12/09/22 07:29 O2 Del Method 12/09/22 07:51 ENMT Mouth: no dentition abnormality Thyromental Distance: > or= 3.5 Finger Breadths Mallampati Class: II Neck normal visual inspection Respiratory normal respiratory effort Auscultation: lungs clear to auscultation bilaterally Cardiovascular Rate/Rhythm: regular rate and regular rhythm Testing Laboratory Results 12/09/22 04:19 12/09/22 04:19
--- NOTE | 2022-12-09 08:01 | Orthopedic Consultation ---
Date of Consultation December 09, 2022 Assessment & Plan (1) Closed fracture dislocation of right ankle: Imaging and exam findings were discussed by Dr. Flood with patient at bedside Recommending pt be taken to the OR for an open reduction internal fixation of a right ankle fracture. Risks and benefits were discussed with the patient. Written consent was obtained. Pt will be taken to the OR urgent Present on Admission?: Yes Supervising Physician Co-Signing Physician Notes Personally evaluated patient in the ER, developed the plan, and agree with my PA's note. History of Present Illness Reason for Consultation: right ankle fracture Attending Physician: Roddy Bojorquez MD History of Present Illness Patient is a 57 y.o male who is being seen by Dr. Flood after being consulted for a right ankle fracture. He explained that he was dancing and tripped. He was transported to the ER and he was found to have a right ankle fracture that was displaced. He was attempted to be reduced w/o success. He was splinted. He denies any other trauma or other injury injury. HE denies any paresthesia, fever, chills, CP, SOB, n/v/d. Allergies Allergy/AdvReac Type Severity Reaction Status Date / Time No Known Allergies Allergy Unverified 06/27/22 09:05 Home Medications Medication Instructions Recorded Confirmed Type amlodipine 5 mg tablet 5 mg PO DAILY 06/27/22 12/08/22 History carvedilol 3.125 mg tablet 3.125 mg PO BID 06/27/22 12/09/22 History losartan 100 mg tablet 100 mg PO DAILY 06/27/22 12/08/22 History albuterol sulfate 90 mcg/actuation 2 puff inhalation Q4 PRN Wheezing 12/08/22 12/08/22 History aerosol inhaler Patient History Medical History Chest pain Chronic rhinitis COPD (chronic obstructive pulmonary disease) Hypertension Surgical History S/P hernia repair ventral hernia 01/07/12 Dr. Dixon Family History Father Cancer Prostate Grandfather (Paternal) Cancer Prostate Uncle Cancer Prostate Other Diabetes Social History Smoking Status: Heavy tobacco smoker Tobacco Type: Cigarettes packs per day: 0.5; Cigarettes Per Day: 10; Second Hand Exposure: No; Do You Dip or Chew Tobacco: Yes; Tobacco Cessation Education Requested by Patient: No Hx Alcohol Use: Yes Alcohol type: beer, wine and hard liquor Alcohol type Comment: 4-8 beers nightly, last drink 12/31/21 Hx Substance Use: No Preferred Language: Togolese Communication Ability: Effective Visual Impairment: No Limitations Hearing Ability: Normal National Facilities Manager Required: No Beliefs That Will Affect Care: None Current Living Situation: Alone current occupational status: employed 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 Flood and focused on the RLE General: A&O x3 answering questions appropriately Musculoskeletal: RLE is in a splint, skin was exposed. Wrinkles are present, edema is well managed, intact neg for any open areas or abrasions. Skin exposed had no ecchymosis. temperature is normal. Able to wiggle all toes. DP 2+ Results & Data ([facility]) Vital Signs (Past 12 Hours) Vital Signs Temp Pulse Pulse Resp BP BP Pulse Ox 12/09/22 07:51 12/09/22 07:29 12/09/22 07:25 89 18 129/83 98 12/09/22 04:58 88 19 174/105 H 95 12/09/22 02:46 89 18 146/90 H 97 12/09/22 00:53 84 18 129/85 98 12/08/22 22:42 88 20 111/75 96 12/08/22 21:48 83 18 99 12/08/22 21:42 37.0 C 83 18 139/87 99 Pulse Ox O2 Del Method O2 Del Method 12/09/22 07:51 Room Air 12/09/22 07:29 98 Room Air 12/09/22 07:25 Room Air 12/09/22 04:58 Room Air 12/09/22 02:46 Room Air 12/09/22 00:53 Room Air 12/08/22 22:42 Room Air 12/08/22 21:48 Room Air 12/08/22 21:42 Room Air Diagnostic Findings Xray interpretted by Dr. Flood: unstable ankle fracture, widening at medial aspect of the joint (1) Closed fracture dislocation of right ankle Encounter type: initial encounter Qualified Code(s): S82.891A - Other fracture of right lower leg, initial encounter for closed fracture
[2022-12-09] MEDS ORDERED: ATROPINE SULFATE 0.1 MG/ML 10ML SYR IV PRN (08:04)
[2022-12-09] MEDS ORDERED: ePHEDrine sulfate 50 MG/ML AMP IV PRN (08:04)
--- NOTE | 2022-12-09 08:07 | XRay Report ---
XR ankle RT min 3V routine CLINICAL HISTORY: post splinting. Right ankle fracture. COMPARISON STUDY: Right ankle 12/08/2022. FINDINGS: Overlying cast material obscures fine bony detail. There is again noted a displaced bimalle olar right ankle fracture. There is slight improved anatomic alignment of the distal fibular fracture and widening of the ankle mortise. Diffuse soft tissue swelling is noted. IMPRESSION: Status post splinting of the bimalleolar right ankle fracture with slight improved align ment. ACT 112: Negative or not required by law. Electronically signed by: Colin Retana M.D. 12/09/2022 8:06 AM
--- NOTE | 2022-12-09 08:10 | XRay Report ---
XR tibia fibula RT 2V, XR ankle RT 2V CLINICAL HISTORY: trauma. Right ankle pain. COMPARISON STUDY: None. FINDINGS: The proximal tibia and proximal fibula are intact. There is a displaced right ankle fractur e with lateral dislocation at the tibiotalar joint. There is approximately 13 mm of lateral displacem ent of the talus in relation to the distal tibia. Small bony fragments at the medial malleolus consis tent with an acute avulsion injuries. A distal fibular fracture demonstrates up to 7 mm of posterior displacement and 6 mm of lateral displacement. Possible fracture of the posterior malleolus. IMPRESSION: Displaced right ankle fracture with lateral dislocation of the tibiotalar joint as descr ibed above. ACT 112: Negative or not required by law. Electronically signed by: Colin Retana M.D. 12/09/2022 8:08 AM
--- NOTE | 2022-12-09 08:11 | History & Physical Bridge Note ---
Date of Service December 09, 2022 History & Physical Bridge Note I have examined the patient, reviewed the History & Physical and in the interval since the performance of the History & Physical I have noted the following changes of clinical significance: no changes noted
[2022-12-09] MEDS ORDERED: ceFAZolin 330 MG/ML 1 GM VIAL ONE (08:17)
--- NOTE | 2022-12-09 08:21 | History and Physical Report ---
DATE OF ADMISSION: 12/09/2022 CHIEF COMPLAINT: Status post fall and right ankle fracture. HISTORY OF PRESENT ILLNESS: This is a 57-year-old male with past medical history significant for hypertension, history of prostate cancer, status post radiation treatment; history of chronic rhinitis, ongoing tobacco abuse, and ongoing alcoholism, who presents with fall and right ankle fracture. The patient was at alf constitution party and was dancing when he fell and injured his right ankle and dislocation of right ankle was noted. The patient is status post right ankle reduction and placement of splint in the ER. Also, plan for the procedure tomorrow. The patient is currently resting comfortably and hemodynamically stable. He states with movement of the leg, he is having pain. Denies any chest pain. No shortness of breath. No cough. No nausea. No vomiting. No abdominal pain. Normal bowel and bladder movements. No blood in stool or black stools. No headache. No blurred visions. No earache. No runny nose. No sore throat. No cough. No difficulty swallowing. He says that prior to this event, he was active climbing steps and ambulating fine. Denies any heart disease. He says smokes on average half pack a day of cigarettes and drinks 4 to 8 beers every day. ALLERGIES: NO KNOWN DRUG ALLERGIES. PAST MEDICAL HISTORY: As mentioned above. PAST SURGICAL HISTORY: Repair of ventral hernia. MEDICATIONS: The patient is on albuterol 2 puffs inhalation q.4 hours p.r.n., amlodipine 5 mg p.o. daily, Coreg 3.125 mg p.o. b.i.d., and losartan 100 mg p.o. daily. FAMILY HISTORY: Significant for mother had breast cancer and father had prostate cancer. SOCIAL HISTORY: Single. Smokes half pack a day for 20 years. Alcohol: Four to eight beers daily. No drug use. REVIEW OF SYSTEMS: As per HPI. Rest of the review of systems is negative. PHYSICAL EXAMINATION: GENERAL: The patient is of moderate build, not in acute distress. VITAL SIGNS: Temperature 37, pulse 80, respiratory rate 20, blood pressure 111/75, and oxygen 96% on room air. HEENT: Pupils equal, round, and reactive to light. Oral mucosa moist. NECK: No JVD or neck masses. CARDIOVASCULAR: S1 and S2 heard. Regular rate and rhythm. No murmur. No gallop. RESPIRATORY SYSTEM: Normal AP diameter. No accessory muscle use. No wheezing. No crackles. ABDOMEN: Soft, bowel sounds present, and nontender. No distention. CENTRAL NERVOUS SYSTEM: Somewhat drowsy, easily arousable. Speech is okay. No facial droop. Obeys simple commands. Insight is okay. Moves extremities. EXTREMITIES: Right lower extremity is in a wrap. No edema or erythema seen in the left lower extremity. LABORATORY DATA: WBC 8.5, hemoglobin 16.8, hematocrit 48, and platelets 276. Sodium 135, potassium 3.9, chloride 99, bicarb 26, BUN 17, creatinine 1.2, serum glucose 104, and calcium 9.1. SARS-CoV-2 rapid test negative. ASSESSMENT AND PLAN: This is a 57-year-old male, who presents with a mechanical fall and right ankle fracture. 1. Mechanical fall and right ankle fracture. The patient was dancing when he fell and injured his right ankle, status post reduction and splint placement in the ER. Ortho consulted. Will keep him n.p.o., IV fluids, and IV Dilaudid p.r.n. The patient is otherwise active with no heart disease as per the patient and he had a dobutamine stress echo done in January of 2022, which was negative study. We will get preoperative EKG and chest x-ray, and if they are okay, the patient should be at acceptable risk to proceed with procedure. 2. Hypertension. Continue his home medication of amlodipine and Coreg. We will hold losartan until the procedure is done and place on IV hydralazine p.r.n.Restart losartan after procedure.Will Monitor. 3. Tobacco abuse needs counseling. 4. Alcoholism, drinks 4 to 8 beers every day. We will give him banana bag, IV thiamine, IV folic acid, gabapentin, alcohol withdrawal protocol, and IV Ativan p.r.n. and clonidine p.r.n. 5. Deep venous thrombosis prophylaxis. We could not place SCD because of the ankle fracture. No anticoagulation for planned procedure. Further anticoagulation as per orthopedics. DISPOSITION: Admit to med/tele. PT and OT prior to discharge. Social service to help with discharge planning. Level 1 full code. Job ID: [id number] [facility]
--- NOTE | 2022-12-09 08:24 | XRay Report ---
XR chest 1V portable HISTORY: 57 years-old Male pre op preoperative exam. No acute chest complaints COMPARISON: 11/28/2022 TECHNIQUE: AP view of the chest FINDINGS: Cardiac silhouette is enlarged. No pneumothorax. Mild linear subsegmental bibasilar densities suggest sary of atelectasis. No pneumothorax, pleural effusion or lobar airspace consolidation. Bones appear g rossly intact. IMPRESSION: No acute process. ACT 112: Negative or not required by law. The above report was generated using voice recognition software. It may contain grammatical, syntax o r spelling errors. Electronically signed by: Thang Bocanegra M.D. 12/09/2022 8:22 AM
[2022-12-09] MEDS ORDERED: ceFAZolin 2000MG 2,000 MG/15 ML SYR IV SCH (08:30)
[2022-12-09] MEDS ORDERED: bisacodyL 10 MG SUPP PR PRN (10:02)
[2022-12-09] MEDS ORDERED: MAGNESIUM HYDROXIDE SUSP 30 ML UDC PO PRN (10:02)
[2022-12-09] MEDS ORDERED: METOCLOPRAMIDE HCL INJ 5 MG/ML 2 ML VIAL IV PRN (10:02)
[2022-12-09] MEDS ORDERED: NALOXONE HCL 0.4 MG/1 ML VIAL/CARP IV PRN (10:02)
--- NOTE | 2022-12-09 10:02 | Post Operative Brief Note ---
Immediate Post Op Note v1 Date of Surgery December 09, 2022 Pre & Post Diagnosis Operation Date: 12/09/22 09:00 Pre-Op Diagnosis: Right Ankle Fracture Post-Op Diagnosis: Right Ankle Fracture I identified the patient and participated in the time-out.: Yes Procedure Operation Date: 12/09/22 09:00 Actual Procedures p Open Reduction Internal Fixation Right Ankle(Right) - Miky Flood MD Surgeon Miky Flood MD Computer Analyst KRISSY Pool Estimated Blood Loss 5 Findings Consistent with Post-Op Diagnosis Anesthesia Type General Regional Disposition Accompanied Patient To Recovery: Yes
--- NOTE | 2022-12-09 10:03 | Operative Report ---
Post Operative Report Pre & Post Diagnosis Operation Date: 12/09/22 09:00 Pre-Op Diagnosis: Right Ankle Fracture Post-Op Diagnosis: Right Ankle Fracture I identified the patient and participated in the time-out.: Yes Procedure Operation Date: 12/09/22 09:00 Actual Procedures p Open Reduction Internal Fixation Right Ankle(Right) - Miky Flood MD Surgeon Miky Flood MD Awning Finisher KRISSY Pool Estimated Blood Loss 5 Findings Consistent with Post-Op Diagnosis Specimens NA Anesthesia Type General Regional Complications NA Disposition Accompanied Patient To Recovery: Yes Description of Procedure PREOPERATIVE DIAGNOSES: Right ankle fracture POSTOPERATIVE DIAGNOSES: Right ankle fracture OPERATION PERFORMED: Right ankle fracture open reduction with internal fixation of the fibula PRIMARY SURGEON: Miky Flood MD CONSTRUCTION MATERIALS TESTER SURGEON: Tara Pool PA-C INDICATION FOR SURGERY: Patient is a 57 y.o male who is being seen by Dr. Flood after being consulted for a right ankle fracture. He explained that he was dancing and tripped. He was transported to the ER and he was found to have a right ankle fracture that was displaced. He was attempted to be reduced w/o success. He was splinted. He denies any other trauma or other injury injury. He denies any paresthesia, fever, chills, CP, SOB, n/v/d. FINDINGS: Distal fibula fracture, avulsion of deltoid ligament and small shonda of bone off the medial malleolus, posterior malleolus fracture LABORATORY SPECIMEN(s): None. IMPLANTS: Arthrex ankle fracture plate and screws ANESTHESIA: General, with regional nerve block Tourniquet: 54 minutes at 250 mmHg on the left thigh Preop antibiotics: 2 g of Ancef Complications: None Estimated blood loss: 5 cc DESCRIPTION OF OPERATION: The patient was identified in the preoperative holding area. The patients consent was verified identifying the patient and the procedure. His skin was also checked to ensure the swelling had reduced enough for surgery to be safe. The surgeons initials were placed on the patients foot in this case. The patient was then taken from the preoperative holding area to the Operating Room by the Anesthesia Service. The patient was transferred from the hospital bed to the Operating Room table and placed under general anesthesia without difficulty. At this point, the patients lower extremity was cleaned, prepped, and draped in a standard sterile fashion. A nonsterile tourniquet was placed on the patients upper thigh. A surgical time-out was performed identifying the patient and the procedure. All members of the Surgical Team agreed. The patient was given 2g of Ancef preoperatively. The procedure started with EUA with c-arm. Before skin incision, I fully reduced the ankle to ensure there was no block to reduction from the deltoid ligament. I was able to easily reduce the ankle and checked the reduction with an AP, mortise, and lateral c-xray shot. Therefore, at this point, I opted to proceed with fixation of the distal fibula first and only utilize a medial approach if the deltoid ligament caused any malreduction later in the case. Attention was turned to the lateral ankle. An incision was made over the distal fibula with a knife, which brought us down to the fibula. During this dissection, the superficial peroneal nerve was identified, protected, and retracted anteriorly during the case. The fracture was identified and opened up, allowing for clearing of soft fracture callus from around the fracture and any soft tissue debris in the way. The fracture was reduced with pointed reduction clamps, with reduction verified on fluoroscopy. After obtaining the reduction, two lag screws were placed through the oblique fracture in a lag technique fashion. Both of these screws were a 2.7 mm diameter. Once this was completed, the reduction was found to be maintained appropriately. A 6-hole locking plate was selected and placed on the lateral aspect of the fibula. This was held in place and affixed with one screw proximally and distally. Verification of appropriate plate placement was performed on fluoroscopy. The construct was then completed with 3 additional proximal nonlocking screws, 4 distal locking screws distally. The reduction was now maintained, fibular out to length, talus reduced anatomically in the mortise, negative external stress test (mortise did not widen). A hook test was then performed and the tibia- fibula clear space did not widen, indicating stability to the syndesmosis. Lastly, the posterior malleolus was well-reduced and stable through dynamic ROM testing with c-arm intraoperatively. All the incisions were then thoroughly irrigated with sterile saline then closed with vicryl, monocryl, and nylon. All the incisions were covered with Xeroform, gauze, ABD pad. The patient was then placed into a well-padded short leg splint. The tourniquet was released. At this point, the patients drapes were taken down. The patient was awoken from anesthesia and was taken to the Post Anesthesia Recovery Unit in a stable condition. Postoperatively, the patient will be non-weightbearing for a period of approximately six weeks. The patient will follow up in my clinic for a regularly scheduled follow-up. I attest to the content of the Intraoperative Record and any orders documented therein. Any exceptions are noted below.
--- NOTE | 2022-12-09 10:12 | Operative Report ---
Post Operative Report Pre & Post Diagnosis Operation Date: 12/09/22 09:00 Pre-Op Diagnosis: Right Ankle Fracture Post-Op Diagnosis: Right Ankle Fracture I identified the patient and participated in the time-out.: Yes Procedure Operation Date: 12/09/22 09:00 Actual Procedures p Open Reduction Internal Fixation Right Ankle(Right) - Miky Flood MD Surgeon Miky Flood MD Shank Piece Tacker KRISSY Pool Estimated Blood Loss 5 Findings Consistent with Post-Op Diagnosis Specimens none Complications none Disposition Accompanied Patient To Recovery: No Description of Procedure I was present during the entire case to assist with positioning, draping, retracting, assisting with wound closure and dressing change. No fellow was available I attest to the content of the Intraoperative Record and any orders documented therein. Any exceptions are noted below.
[2022-12-09] MEDS: fentaNYL citrate 100 MCG/2 ML VIAL IV PRN ×2 (10:13→10:23)
--- NOTE | 2022-12-09 10:19 | Fluoroscopy Report ---
FL ankle RT min 3V RTN CLINICAL HISTORY: ORIF RT ANKLE. Right ankle fracture. COMPARISON STUDY: Right ankle 12/08/2022. FLUOROSCOPY TIME: 20 seconds. FINDINGS: 6 fluoroscopic spot images of the right ankle demonstrate internal fixation of the distal f ibular fracture with a cortical plate and screws. The hardware appears intact. The alignment is near- anatomic IMPRESSION: Fluoroscopic assistance provided for internal fixation of a right ankle fracture ACT 112: Negative or not required by law. Electronically signed by: Colin Retana M.D. 12/09/2022 10:18 AM
--- NOTE | 2022-12-09 10:30 | Anesthesiology Progress Note ---
Date of Service December 09, 2022 Anesthesia Post Procedure Vital Signs Vital Signs: Temp Pulse Pulse Resp BP BP Pulse Ox 12/09/22 07:51 12/09/22 07:29 12/09/22 07:25 89 18 129/83 98 12/09/22 04:58 88 19 174/105 H 95 12/09/22 02:46 89 18 146/90 H 97 12/09/22 00:53 84 18 129/85 98 12/08/22 22:42 88 20 111/75 96 12/08/22 21:48 83 18 99 12/08/22 21:42 98.6 F 83 18 139/87 99 Pulse Ox O2 Del Method O2 Del Method 12/09/22 07:51 Room Air 12/09/22 07:29 98 Room Air 12/09/22 07:25 Room Air 12/09/22 04:58 Room Air 12/09/22 02:46 Room Air 12/09/22 00:53 Room Air 12/08/22 22:42 Room Air 12/08/22 21:48 Room Air 12/08/22 21:42 Room Air Pain Intensity Right Ankle: Pain Intensity: 10 Transfer of Care Handoff Completed per policy Notes Mental Status: alert / awake / arousable and participated in evaluation Patient Amnestic to Procedure: Yes Nausea / Vomiting: adequately controlled Pain: adequately controlled Airway Patency, RR, SpO2: stable & adequate BP & HR: stable & adequate Hydration State: stable & adequate Anesthetic Complications: no major complications apparent and Pt Satisfied with anesthetic care
[2022-12-09] MEDS: GABAPENTIN 600 MG TAB PO SCH ×3 (11:35→23:09)
[2022-12-09] MEDS: FOLIC ACID 1 MG in SYRINGE 9.8 ML IV SCH (11:35)
[2022-12-09] MEDS: amLODIPine BESYLATE 5 MG TAB PO SCH (11:35)
[2022-12-09] MEDS: THIAMINE HCL 100 MG in SYRINGE 9 ML IV SCH (11:35)
[2022-12-09] MEDS: carvediloL 3.125 MG TAB PO SCH ×2 (11:35→20:34)
--- NOTE | 2022-12-09 13:16 | Communication Note ---
Date of Service: December 09, 2022 Patient seen and examined after the surgical procedure(ORIF of right ankle) He is comfortable; pain is well controlled on the medications. No complaint of fever, chills, chest pain, shortness of breath or urinary symptoms. PT OT Pain control Alcohol withdrawal protocol Continue on home antihypertensive; amlodipine, Coreg and losartan.
[2022-12-09] MEDS: oxyCODONE HCL IR 5 MG TAB (IMMEDIATE RELEASE) PO PRN ×2 (13:44→20:27)
[2022-12-09] MEDS: ceFAZolin 2000MG 2,000 MG/15 ML SYR IV SCH ×2 (16:14→23:10)
[2022-12-09] MEDS: DOCUSATE SODIUM 100 MG CAP PO SCH (20:34)
[2022-12-09] MEDS ORDERED: SENNA 8.6 MG TAB PO SCH (21:00)
[2022-12-09 22:49] VITALS: O2SAT 94
[2022-12-10] MEDS: oxyCODONE HCL IR 5 MG TAB (IMMEDIATE RELEASE) PO PRN ×2 (01:00→05:31)
[2022-12-10] MEDS: GABAPENTIN 600 MG TAB PO SCH (06:18)
[2022-12-10 07:23] VITALS: BP 153/84; TEMP 98.1
[2022-12-10 07:24] LABS: Basophils # (auto) 0.05 K/uL (0-0.2); Basophils % (auto) 0.5 %; Eosinophils # (auto) 0.13 K/uL (0-0.50); Eosinophils % (auto) 1.2 %; Hematocrit (blood only) 40.1 % (40.1-51.0); Hemoglobin 13.7 g/dl (14.0-18.0); Immature Granulocytes # (auto) 0.04 K/uL (0.00-0.02); Immature Granulocytes % (auto) 0.4 %; Lymphocytes # (auto) 1.18 K/uL (1.2-3.4); Lymphocytes % (auto) 11.1 %; Mean Corpuscular Hemoglobin 32.4 pg (25.0-34.0); Mean Corpuscular Hgb Conc 34.2 g/dL (32.0-36.0); Mean Corpuscular Volume 94.8 fL (80.0-100.0); Mean Platelet Volume 9.5 fL (9.4-12.4); Monocytes # (auto) 1.39 K/uL (0.24-0.82); Monocytes % (auto) 13.1 %; Neutrophils # (auto) 7.84 K/uL (1.4-6.5); Neutrophils % (auto) 73.7 %; Platelet Count 211 K/uL (130-400); RDW Coefficient of Variation 12.5 % (11.5-14.5); RDW Standard Deviation 43.5 fL (36.4-46.3); Red Blood Count 4.23 M/uL (4.63-6.08); White Blood Count 10.63 K/ul (4.8-10.8)
[2022-12-10 07:43] LABS: BUN Creatinine Ratio 13.1 (10-20); Calcium 8.6 mg/dl (8.5-10.1); Est GFR (African American) 88.8 ml/min; Est GFR (Non-African American) 76.7 ml/min; Potassium 4.2 mmol/L (3.5-5.1)
[2022-12-10] MEDS: FOLIC ACID 1 MG in SYRINGE 9.8 ML IV SCH (08:58)
[2022-12-10] MEDS: amLODIPine BESYLATE 5 MG TAB PO SCH (08:59)
[2022-12-10] MEDS: carvediloL 3.125 MG TAB PO SCH (08:59)
[2022-12-10] MEDS: THIAMINE HCL 100 MG in SYRINGE 9 ML IV SCH (08:59)
[2022-12-10] MEDS: DOCUSATE SODIUM 100 MG CAP PO SCH (09:00)
[2022-12-10] MEDS ORDERED: MULTIVITAMIN TAB PO SCH (09:00)
[2022-12-10 12:24] VITALS: PULSE 77
--- NOTE | 2022-12-10 14:38 | Orthopedic Progress Note ---
Date of Service December 10, 2022 Assessment & Plan (1) Status post ORIF of fracture of ankle: Plan: PT/OT while inhouse Keep splint in place Nonweightbearing on Right LE Ambulatory assisted device (crutches or walker) Elevate Ice with EZ wrap. DVT prophy with Aspirin Pain control with PO meds Follow up at [facility] as instructed in Discharge paperwork. Admission and Anticipated Discharge Date Admission Date: December 09, 2022 Subjective This 57 you M is day 1 s/p Right ankle bimalleolar fx ORIF. Doing well. Pain well controlled with PO meds. Hoping to be discharged home today. Review of Systems Review of Systems: All systems reviewed & are unremarkable except as noted in Subjective Physical Exam Physical Exam: Right ankle: splint/dressing clean, dry and intact. Able to SLR and has appropriate movement of digits. Quad strength 3+/5. NV intact Results & Data ([facility]) Vital Signs (Past 12 Hours) Vital Signs Temp Pulse Pulse Resp BP Pulse Ox O2 Del Method 12/10/22 12:23 36.7 C 77 88 16 153/84 H 94 12/10/22 07:22 36.7 C 88 16 153/84 H 94 Room Air Diagnostic Findings Laboratory Results WBC 10.63 K/ul (4.8-10.8) 12/10/22 06:51 RBC 4.23 M/uL (4.63-6.08) L 12/10/22 06:51 Hgb 13.7 g/dl (14.0-18.0) L 12/10/22 06:51 Hct 40.1 % (40.1-51.0) 12/10/22 06:51 MCV 94.8 fL (80.0-100.0) 12/10/22 06:51 MCH 32.4 pg (25.0-34.0) 12/10/22 06:51 MCHC 34.2 g/dL (32.0-36.0) 12/10/22 06:51 RDW Std Deviation 43.5 fL (36.4-46.3) 12/10/22 06:51 RDW Coeff of Johnson 12.5 % (11.5-14.5) 12/10/22 06:51 Plt Count 211 K/uL (130-400) 12/10/22 06:51 MPV 9.5 fL (9.4-12.4) 12/10/22 06:51 Immature Gran % (Auto) 0.4 % 12/10/22 06:51 Neut % (Auto) 73.7 % 12/10/22 06:51 Lymph % (Auto) 11.1 % 12/10/22 06:51 [place] % (Auto) 13.1 % 12/10/22 06:51 Eos % (Auto) 1.2 % 12/10/22 06:51 Baso % (Auto) 0.5 % 12/10/22 06:51 Neut # (Auto) 7.84 K/uL (1.4-6.5) H 12/10/22 06:51 Lymph # (Auto) 1.18 K/uL (1.2-3.4) L 12/10/22 06:51 [place] # (Auto) 1.39 K/uL (0.24-0.82) H 12/10/22 06:51 Eos # (Auto) 0.13 K/uL (0-0.50) 12/10/22 06:51 Baso # (Auto) 0.05 K/uL (0-0.2) 12/10/22 06:51 Immature Gran # (Auto) 0.04 K/uL (0.00-0.02) H 12/10/22 06:51 Sodium 135 mmol/L (136-145) L 12/10/22 06:51 Potassium 4.2 mmol/L (3.5-5.1) 12/10/22 06:51 Chloride 103 mmol/L (98-107) 12/10/22 06:51 Carbon Dioxide 26 mmol/L (21-32) 12/10/22 06:51 Anion Gap 6 (3-11) 12/10/22 06:51 BUN 14 mg/dl (6-23) 12/10/22 06:51 Creatinine 1.07 mg/dl (0.6-1.4) 12/10/22 06:51 Est Cr Clr Drug Dosing 95.0 ml/min 12/10/22 06:51 Est GFR ( Amer) 88.8 ml/min 12/10/22 06:51 Est GFR (Non-Af Amer) 76.7 ml/min 12/10/22 06:51 BUN/Creatinine Ratio 13.1 (10-20) 12/10/22 06:51 Glucose 120 mg/dl (70-99(Fasting)) H 12/10/22 06:51 Calcium 8.6 mg/dl (8.5-10.1) 12/10/22 06:51 Magnesium 2.0 mg/dl (1.7-2.4) 12/09/22 04:19 Total Bilirubin 1.1 mg/dl (0.2-1.0) H 12/09/22 04:19 Direct Bilirubin 0.1 mg/dl (0-0.2) 12/09/22 04:19 AST 23 U/L (13-39) 12/09/22 04:19 ALT 43 U/L (7-52) 12/09/22 04:19 Alkaline Phosphatase 51 U/L (34-104) 12/09/22 04:19 Total Protein 6.5 gm/dl (6.0-8.3) 12/09/22 04:19 Albumin 3.8 gm/dl (3.4-5.0) 12/09/22 04:19 Vitamin B12 418 pg/ml (180-914) 12/09/22 04:19 Folate > 22.30 ng/ml (>5.38) 12/09/22 04:19 SARS-CoV-2, RNA, NAAT NEGATIVE (NEGATIVE) 12/08/22 22:18 Impressions Tibia/Fibula X-Ray 12/08/22 22:00 XR tibia fibula RT 2V, XR ankle RT 2V CLINICAL HISTORY: trauma. Right ankle pain. COMPARISON STUDY: None. FINDINGS: The proximal tibia and proximal fibula are intact. There is a displaced right ankle fracture with lateral dislocation at the tibiotalar joint. There is approximately 13 mm of lateral displacement of the talus in relation to the distal tibia. Small bony fragments at the medial malleolus consistent with an acute avulsion injuries. A distal fibular fracture demonstrates up to 7 mm of posterior displacement and 6 mm of lateral displacement. Possible fracture of the posterior malleolus. IMPRESSION: Displaced right ankle fracture with lateral dislocation of the tibiotalar joint as described above. ACT 112: Negative or not required by law. Electronically signed by: Colin Retana M.D. 12/09/2022 8:08 AM Chest X-Ray 12/09/22 02:27 XR chest 1V portable HISTORY: 57 years-old Male pre op preoperative exam. No acute chest complaints COMPARISON: 11/28/2022 TECHNIQUE: AP view of the chest FINDINGS: Cardiac silhouette is enlarged. No pneumothorax. Mild linear subsegmental bibasilar densities suggestive of atelectasis. No pneumothorax, pleural effusion or lobar airspace consolidation. Bones appear grossly intact. IMPRESSION: No acute process. ACT 112: Negative or not required by law. The above report was generated using voice recognition software. It may contain grammatical, syntax or spelling errors. Electronically signed by: Thang Bocanegra M.D. 12/09/2022 8:22 AM Ankle X-Ray 12/09/22 09:00 FL ankle RT min 3V RTN CLINICAL HISTORY: ORIF RT ANKLE. Right ankle fracture. COMPARISON STUDY: Right ankle 12/08/2022. FLUOROSCOPY TIME: 20 seconds. FINDINGS: 6 fluoroscopic spot images of the right ankle demonstrate internal fixation of the distal fibular fracture with a cortical plate and screws. The hardware appears intact. The alignment is near-anatomic IMPRESSION: Fluoroscopic assistance provided for internal fixation of a right ankle fracture ACT 112: Negative or not required by law. Electronically signed by: Colin Retana M.D. 12/09/2022 10:18 AM
--- NOTE | 2022-12-10 15:46 | Discharge Summary ---
Date of Service December 10, 2022 Admission HPI Per Admitting Provider This is a 57-year-old male with past medical history significant for hypertension, history of prostate cancer, status post radiation treatment; history of chronic rhinitis, ongoing tobacco abuse, and ongoing alcoholism, who presents with fall and right ankle fracture. The patient was at [employer] and was dancing when he fell and injured his right ankle and dislocation of right ankle was noted. The patient is status post right ankle reduction and placement of splint in the ER. Also, plan for the procedure tomorrow. The patient is currently resting comfortably and hemodynamically stable. He states with movement of the leg, he is having pain. Denies any chest pain. No shortness of breath. No cough. No nausea. No vomiting. No abdominal pain. Normal bowel and bladder movements. No blood in stool or black stools. No headache. No blurred visions. No earache. No runny nose. No sore throat. No cough. No difficulty swallowing. He says that prior to this event, he was active climbing steps and ambulating fine. Denies any heart disease. He says smokes on average half pack a day of cigarettes and drinks 4 to 8 beers every da Admission Exam Per Admitting Provider GENERAL: The patient is of moderate build, not in acute distress. VITAL SIGNS: Temperature 37, pulse 80, respiratory rate 20, blood pressure 111 /75, and oxygen 96% on room air. HEENT: Pupils equal, round, and reactive to light. Oral mucosa moist. NECK: No JVD or neck masses. CARDIOVASCULAR: S1 and S2 heard. Regular rate and rhythm. No murmur. No gallop. RESPIRATORY SYSTEM: Normal AP diameter. No accessory muscle use. No wheezing. No crackles. ABDOMEN: Soft, bowel sounds present, and nontender. No distention. CENTRAL NERVOUS SYSTEM: Somewhat drowsy, easily arousable. Speech is okay. No facial droop. Obeys simple commands. Insight is okay. Moves extremities. EXTREMITIES: Right lower extremity is in a wrap. No edema or erythema seen in the left lower extremity. Principal Diagnosis Mechanical fall Right ankle fracture status post ORIF on 12/09/2022 Discharge Exam Constitutional: WD/WN, vitals as above, NAD, sitting up in bed, pleasant, conversing easily Respiratory: normal respiratory effort, lungs clear to auscultation, no wheeze, rales, rhonchi. Normal insp/exp effort, no accessory muscle use Cardiovascular: RRR, no murmur, no edema Vessels: no JVD or carotid bruit Chest: normal inspection of chest Abdomen: normal bowel sounds, soft, nontender, no hepatosplenomegaly Musculoskeletal: Right foot with overlying bandage; no soakage present. Able to move his toes. Skin: no rashes, warm and dry normal turgor Neurologic: PERRL, EOMI, accommodation nl, no face palsy, no dysarthria CN's II- XI intact bilaterally and moves all extremities Psychiatric: A+Ox3, euthymic affect Lymphatic: no cervical or axillary lymphadenopathy : deferred Discharge Data Allergies Allergy/AdvReac Type Severity Reaction Status Date / Time No Known Allergies Allergy Unverified 06/27/22 09:05 Consultations 12/08/22 23:16 Consult Orthopedic Surgery Routine 12/08/22 23:21 ED Decision to Admit Stat Procedures Performed Operation Date: 12/09/22 09:00 Actual Procedures p Open Reduction Internal Fixation Right Ankle(Right) - Miky Flood MD Ordered Studies 12/09/22 08:00 US - OR guided needle placemen Routine 12/09/22 09:00 FL ankle RT min 3V RTN Routine Hospital Course (1) Closed fracture dislocation of right ankle: (2) Status post ORIF of fracture of ankle: Plan Patient is a 57-year-old male with possible history of hypertension, alcohol use disorder who presented to the ED with a fall. Ankle x-ray showed displaced rig ht ankle fracture with lateral dislocation of the tibiotalar joint. Patient was admitted to medical floor for further management. On 12/09/2022; patient underwent ORIF by orthopedics. Patient was treated with pain medication postoperatively. Perioperative and postoperative period was uneventful. Patient worked with physical therapy and Occupational Therapy; recommended home. Patient was discharged home with analgesics. Aspirin twice daily was prescribed as per recommendation by orthopedic for DVT prophylaxis. Patient to follow-up with orthopedic in 2 weeks. Outpatient PCP follow-up was also set up. Total Time Total Time Spent Total Time Spent (In Minutes): 35 Total Time Includes: Examination of the Patient, Discharge Planning, Medication Reconciliation, Communication With Other Providers and Other Discharge Plan Discharge Items Patient Disposition: Home - Self-Care Reason For Visit: FALL, ANKLE FRACTURE Discharge Diagnosis: Mechanical fall Right ankle fracture Alcohol use disorder Activity: Resume your previous activity Non-emergency contact: Primary Care Provider Call non-emergency contact if: you have any medication questions and your symptoms worsen Follow-up/Referrals: Wandy Amezcua DO [Primary Care Provider] - (Date & Time 12/17/2022 11:10 AM Provider Wandy Amezcua DO [facility] ) Miky Flood MD [Surgeon] - 12/26/22 9:00 am Diet: Regular Addtl Attending Provider Instructions: Please follow-up with primary care doctor next week. An appointment will be set up for you. For the pain; you are prescribed Tylenol for mild pain. Please take oxycodone as needed for severe pain. You are prescribed aspirin 81 mg twice daily to be taken to prevent blood clots( DVT) Please follow the orthopedic instruction as below Addtl Gas Meter Mechanic Provider Instructions: Patient will need follow-up at [facility] orthopedics in 2 weeks for suture and splint removal. ( Dr. Flood 12/26/22 arrival 0845am, appt time 0900am) At that appointment we will transition him to a cam boot. We will keep him nonweightbearing for total of 6 weeks postoperatively. Orthopedically the patient is stable for discharge. Pain control with p.o. medication DVT prophylaxis with aspirin and JUAN stockings Ice with easy wrap PT/OT evaluation prior to discharge. Pending Studies at Discharge: No Stand-Alone Forms: My [employer], Smoking Cessation Medications and DC Order Prescriptions: New acetaminophen 325 mg Tablet 650 mg PO Q4H PRN (Reason: fever or pain) Qty: 60 0RF oxycodone 5 mg Tablet 5 - 10 mg PO Q4H PRN (Reason: pain) Qty: 14 0RF sennosides [Senokot] 8.6 mg Tablet 17.2 mg PO HS PRN (Reason: constipation) Qty: 10 0RF aspirin 81 mg capsule 81 mg PO BID 14 Days Qty: 28 0RF Continued losartan 100 mg tablet 100 mg PO DAILY amlodipine 5 mg tablet 5 mg PO DAILY carvedilol 3.125 mg tablet 3.125 mg PO BID Rx Instructions: must administer with a meal/food albuterol sulfate 90 mcg/actuation HFA aerosol inhaler 2 puff INHALATION Q4 PRN (Reason: Wheezing) Discharge Orders: Discharge Order (Routine); Ordered 12/10/22 Ordered By: Roddy Bojorquez Admission Data Admit Date/Time: 12/09/22 00:14 Attending Provider: Roddy Bojorquez Admit Provider: Yony Schaffer Primary Care Provider: Wandy Amezcua Other Providers: Miky Flood ; Yony Schaffer Other Interventions: Discharge Summary Assessment (RN) Last Done: 12/10/22 12:23
[2022-12-11] MEDS ORDERED: GABAPENTIN 600 MG TAB PO SCH (03:00)
[2022-12-12] MEDS ORDERED: GABAPENTIN 600 MG TAB PO SCH (15:00)
== END 2022-12-10 13:23 | disposition home or self-care (01) | DRG 494 ==
LOC: ED 21:35 → EDINP 12-09 00:14 → 3N 12-09 11:33